=== PATIENT | male | born 1950 | race African-American/Black ===

== ENCOUNTER 2016-08-23 08:13 | Inpatient (IN) | payer MEDICARE, MEDICAID ==
[2016-08-23 09:19] LABS: ABG Draw Site Right Radial; ALLEN'S TEST PASS; BEb 1.7 (+/- 2)
[2016-08-23 09:22] LABS: AUTOMATED BASOPHIL 1.2 % (0-2); AUTOMATED EOSINOPHIL 4.9 % (0-5); AUTOMATED LYMPH 24.7 % (17-44); AUTOMATED NEUTROPHIL 54.2 % (45-76); MPV 9.8 fL (7.4-10.4)
[2016-08-23 09:34] LABS: BLOOD UREA NITROGEN 19 MG/DL (9-20); CALCIUM 9.6 MG/DL (8.4-10.2); CALCULATED OSMOLALITY 275 MOs/Kg (270-290); CHLORIDE 104 mEq/L (98-107); GLUCOSE 106 MG/DL (70-99); SODIUM LEVEL 142 mEq/L (137-146); TOTAL PROTEIN 8.6 G/DL (6.3-8.2)
--- NOTE | 2016-08-23 09:34 | DIRPT ---
CLINICAL DATA: Shortness of breath for about 2 weeks EXAM: CHEST 2 VIEW COMPARISON: 12/05/2015 FINDINGS: Cardiomegaly again noted. Status post median sternotomy. Single lead cardiac pacemaker is unchanged in position. Central mild vascular congestion and mild perihilar interstitial prominence right greater than left suspicious for asymmetric edema or less likely pneumonitis. Mild degenerative changes mid thoracic spine again noted. IMPRESSION: Cardiomegaly. Single lead cardiac pacemaker in place.Central mild vascular congestion and mild perihilar interstitial prominence right greater than left suspicious for asymmetric edema or less likely pneumonitis. Electronically Signed By: Ayad Tong M.D. On: 08/23/2016 09:31
[2016-08-23] MEDS ORDERED: METOPROLOL TARTRATE 25 MG TAB PO ONE (09:37)
[2016-08-23] MEDS ORDERED: Enoxaparin 1 mg per kg per dose SQ ONE (09:37)
[2016-08-23] MEDS ORDERED: ASPIRIN (CHEWABLE) 81 MG TAB PO ONE (09:37)
[2016-08-23 09:41] LABS: PARTIAL THROMB. TIME 28.2 SEC (22-35); PT-INR 1.1
[2016-08-23] MEDS: NITROGLYCERINE 2 % OINTMENT PACK TOP ONE ×2 (09:47→09:48)
[2016-08-23 09:52] LABS: LEUKOCYTES/URINE NEG (NEGATIVE); NITRITE/URINE NEG (NEGATIVE); RBC/URINE 0-2 (0-2); URINE OCCULT BLOOD 1+ (NEG/TRACE); WBC/URINE 0-2 (0-2)
--- NOTE | 2016-08-23 09:57 | EDPRACDOC ---
- History of Present Illness HPI: MD NOTE SEEN AND EXAMINED; HX OF CABG, ISCHEMIC CARDIOMYOPATHY, CHF, PAF/FLUTTER, AICD PRESENTS WITH DYSPNEA, ORTHOPNEA, AND CP. RECORDS FROM CARDS OBTAINED AND ON CHART. <Steve Ng - Last Filed: 08/23/16 10:24> - General Information Information Source: Patient Mode of Arrival: Car - History of Present Illness Onset: [employer] force [employer] HPI: C/o substernal chest pain starting last night with radiation into both arms and numbness in jaw, with productive cough and congestion and sob x 3 days. pt states he cannot lie flat for 3 days. CP is constant, pressure, worse with exertion. Denies fever, N/V/D, sore throat, changes in urine or BM. Med hx = ACS , prior CABG, CHF, HDL, HTN, DM, CKD< + fam hx for cardiac dz, paroxysmal Afib. Pt on plavix. pt states last stress test done in [place] last year some time and was ok. Chest Pain Location: Reports: Substernal Pain Radiation: Reports: Jaw, Arm (L), Arm (R) Symptoms Occur: Reports: Suddenly, At Rest, With light exertion Cardiac Risk Factors: Reports: Family History, Hyperlipidemia, Hypertension, Diabetes Cardiac History of: Reports: Cardiac Cath, Stress Test, CABG PE Risk Factors: Reports: None Medications within 24 Hours: Reports: Aspirin, Other (plavix) Pain Came On: Reports: Suddenly Pain Status: Present Now Pain Description: Reports: Pressure Pain Severity: Moderate Pain Worsens With: Reports: Exertion Associated Signs and Symptoms: Reports: SOB <Mendoza Wooten - Last Filed: 08/23/16 18:24> - General Information Stated Complaint: CHEST PAIN Time Seen by Provider: 08/23/16 08:55 Home Medications: Home Medications Clopidogrel Bisulfate [Plavix] 75 mg PO DAILY #30 tab 04/24/14 Nitroglycerin [Nitrostat] 0.4 mg SL [id number] PRN 08/22/14 Alprazolam [Xanax] 0.5 mg PO HS 03/31/15 Atorvastatin [Lipitor 20 mg Tablet] 20 mg PO DAILY 03/31/15 Docusate Sodium [Stool Softener] 100 mg PO DAILY 03/31/15 Multivitamin W/Iron, Minerals [Complete Senior] 1 each PO DAILY 03/31/15 Ranitidine [Zantac] 150 mg PO BID 03/31/15 Sertraline HCl [Zoloft] 25 mg PO DAILY 03/31/15 Tamsulosin HCl [Flomax] 0.4 mg PO DAILY 03/31/15 Carvedilol [Coreg] 3.125 mg PO BID #60 tablet 04/03/15 Lisinopril [Prinivil] 5 mg PO DAILY #30 tablet 04/03/15 Amiodarone [Cordarone, Pacerone] 100 mg PO HS 06/22/15 Oxycodone HCl [Oxycodone Immediate Release] 10 mg PO Q6H PRN 08/03/15 Torsemide [Demadex] 20 mg PO BID 08/03/15 Albuterol Sulfate [Proair Hfa] 2 puff INH Q4-6H PRN #1 inhaler 08/08/15 Apixaban [Eliquis] 5 mg PO BID 08/23/16 Ergocalciferol (Vitamin D2) [Vitamin D] 50,000 units PO WEEKLY 08/23/16 Febuxostat [Uloric] 40 mg PO DAILY 08/23/16 PEG-Electrolytes (Miralax) [Miralax] 17 gm PO DAILY PRN 08/23/16 Allergies/Adverse Reactions: Allergies Allergy/AdvReac Type Severity Reaction Status Date / Time shellfish derived Allergy Anaphylaxis Verified 08/23/16 12:43 * ED Past Medical History - History Reviewed Yes Nurses notes reviewed and agree except as marked - Patient Medical History Cardiac History: Reports: Coronary Artery Disease, Hypertension, Congestive Heart Failure, Heart Attack, Cardiac Catheterization, CABG (1999), Stress Test, Hypercholesterolemia, Internal Defibrillator, Pacemaker, Valvular Heart Disease (Echo 04/10: moderate mitral regurg. moderately elevated pulm artery pressure) Respiratory History: Reports: Asthma, COPD, Chronic Bronchitis, Pneumonia, Emphysema GI/ History: Reports: Renal Disease, Gastroesophageal Reflux, BPH Musculoskeletal History: Reports: Gout Psychological History: Denies: Depression, Substance Use Disorder Systemic History: Reports: Diabetes (diet controlled). Denies: Cancer Surgical History: Reports: CABG (1999), Cardiac Catheterization, Other ( PACEMAKER/aicd, CABG x3 stent placement, both feet.) - Family Medical History Reports: Hypertension (brother, father), Diabetes (father and mother), Cancer ( mother - ovarian), Cardiac Disorders (brother, father). Denies: Stroke - Social Medical History Smoking Status: Never smoker Social History: Denies: Substance Use Disorder <Mendoza Wooten - Last Filed: 08/23/16 18:24> EDM Review of Systems - Review of Systems ROS Negative Except as Marked: Yes All systems reviewed and were negative except as marked Nose: Congestion Respiratory: Shortness of Breath Cardiovascular: Chest Pain Endocrine: Diabetes <Mendoza Wooten - Last Filed: 08/23/16 18:24> - Physical Exam Last recorded Vital Signs: Last Vital Signs Temp 97.6 F 08/23/16 08:32 Pulse 69 08/23/16 09:49 Resp 18 08/23/16 09:49 BP 110/72 08/23/16 09:49 Pulse Ox 94 08/23/16 09:49 Oxygen Pulse Oxygen Saturation 94 O2 Device Nasal Cannula Oxygen Flow Rate 2 Fraction of Inspired Oxygen ( FIO2) <Steve Ng - Last Filed: 08/23/16 10:24> - Physical Exam Constitutional: No apparent distress, Alert Oriented to: Time, Person, Place Last recorded Vital Signs: Last Vital Signs Temp 97.6 F 08/23/16 08:32 Pulse 69 08/23/16 09:49 Resp 18 08/23/16 09:49 BP 110/72 08/23/16 09:49 Pulse Ox 94 08/23/16 09:49 Oxygen Pulse Oxygen Saturation 94 O2 Device Nasal Cannula Oxygen Flow Rate 2 Fraction of Inspired Oxygen ( FIO2) - HEENT Head: Normal Eye Exam: negative: Conjunctival Injection, Scleral Icterus Oropharynx: negative: Drooling TMJ: Normal Nose: Congestion Neck: Normal - Respiratory/Cardiovascular Respiratory: Normal - CTA Cardiovascular: Normal - GI Auscultation: Normal Palpation: Normal Tenderness: Non tender - Musculoskeletal Back: Normal Extremities: Normal - Integumentary Skin: Normal - Neurologic Mood Description: Normal Thought: Coherent Perception: Normal <Mendoza Wooten - Last Filed: 08/23/16 18:24> ED Chest Pain Exam - Respiratory/Cardiovascular Respiratory: Normal - CTA Cardiovascular/Chest: Normal Radial Pulse: Normal Pedal Pulse: Normal Edema: negative: 1+, 2+, 3+, 4+, 5, 6 Chest Palpation: Normal <Mendoza Wooten - Last Filed: 08/23/16 18:24> - Results 08/23/16 09:00 08/23/16 09:00 WBC 4.4 xk/uL (3.8-10.8) 08/23/16 09:00 RBC 5.11 xM/uL (4.70-6.10) 08/23/16 09:00 Hgb 13.7 g/dL (14.0-18.0) L 08/23/16 09:00 Hct 41.9 % (42-52) L 08/23/16 09:00 MCV 82 fL (80-94) 08/23/16 09:00 MCH 26.7 pg (27-32) L 08/23/16 09:00 MCHC 32.6 g/dl (33-36) L 08/23/16 09:00 RDW 17.2 % (11.5-14.5) H 08/23/16 09:00 Plt Count 211 xk/uL (130-400) 08/23/16 09:00 MPV 9.8 fL (7.4-10.4) 08/23/16 09:00 Neut % (Auto) 54.2 % (45-76) 08/23/16 09:00 Lymph % (Auto) 24.7 % (17-44) 08/23/16 09:00 [place] % (Auto) 15.0 % (3-10) H 08/23/16 09:00 Eos % (Auto) 4.9 % (0-5) 08/23/16 09:00 Baso % (Auto) 1.2 % (0-2) 08/23/16 09:00 Absolute Neuts (auto) 2.38 xk/uL (1.7-8.2) 08/23/16 09:00 Absolute Lymphs (auto) 1.06 xk/uL (0.65-4.75) 08/23/16 09:00 PT 11.8 SEC (9.2-11.2) H 08/23/16 09:00 INR 1.1 08/23/16 09:00 APTT 28.2 SEC (22-35) 08/23/16 09:00 Puncture Site Right radial 08/23/16 09:15 pH 7.440 pH UNITS (7.35-7.45) 08/23/16 09:15 pCO2 38.0 mmHg (35-45) 08/23/16 09:15 pO2 55.0 mmHg (80-100) L 08/23/16 09:15 HCO3 25.8 MMOL/L (22-26) 08/23/16 09:15 Total CO2 27.0 MMOL/L (23-27) 08/23/16 09:15 Base Excess 1.7 (+/- 2) 08/23/16 09:15 FiO2 % 21% 08/23/16 09:15 Specimen Drawn By Piksa 08/23/16 09:15 Sodium 142 mEq/L (137-146) 08/23/16 09:00 Potassium 3.8 mEq/L (3.5-5.1) 08/23/16 09:00 Chloride 104 mEq/L (98-107) 08/23/16 09:00 Carbon Dioxide 25 mMOL/L (22-33) 08/23/16 09:00 Anion Gap 17 mEq/L (8-16) H 08/23/16 09:00 BUN 19 MG/DL (9-20) 08/23/16 09:00 Creatinine 1.40 MG/DL (0.66-1.25) H 08/23/16 09:00 Estimated GFR (MDRD) > 60 mL/min (>=60) 08/23/16 09:00 Glucose 106 MG/DL (70-99) H 08/23/16 09:00 Calculated Osmolality 275 MOs/Kg (270-290) 08/23/16 09:00 Calcium 9.6 MG/DL (8.4-10.2) 08/23/16 09:00 Total Bilirubin 0.8 MG/DL (0.2-1.3) 08/23/16 09:00 AST 32 IU/L (17-59) 08/23/16 09:00 ALT 32 IU/L (21-72) 08/23/16 09:00 Alkaline Phosphatase 133 IU/L (50-160) 08/23/16 09:00 Troponin I 0.03 ng/mL (<.04) 08/23/16 09:00 Kun-Y-Mhltjcvfxag Pept 1760 pg/mL (0-900) H 08/23/16 09:00 Total Protein 8.6 G/DL (6.3-8.2) H 08/23/16 09:00 Albumin 4.3 G/DL (3.5-5.0) 08/23/16 09:00 Urine Color Pale yellow 08/23/16 09:30 Urine Clarity Clear 08/23/16 09:30 Urine pH 5.0 (5.0-8.0) 08/23/16 09:30 Ur Specific [place] 1.005 (1.003-1.035) 08/23/16 09:30 Urine Protein Neg (NEG/TRACE) 08/23/16 09:30 Urine Glucose (UA) Neg (NEGATIVE) 08/23/16 09:30 Urine Ketones Neg (NEGATIVE) 08/23/16 09:30 Urine Occult Blood 1+ (NEG/TRACE) H 08/23/16 09:30 Urine Nitrite Neg (NEGATIVE) 08/23/16 09:30 Urine Bilirubin Neg (NEGATIVE) 08/23/16 09:30 Urine Urobilinogen <2.0 MG/DL (0-1) 08/23/16 09:30 Ur Leukocyte Esterase Neg (NEGATIVE) 08/23/16 09:30 Urine RBC 0-2 (0-2) 08/23/16 09:30 Urine WBC 0-2 (0-2) 08/23/16 09:30 Urine Bacteria Few (NEG/FEW) 08/23/16 09:30 Urine Mucus Occ (NEG/OCC) 08/23/16 09:30 Lab Results 08/23/16 08/23/16 08/23/16 09:30 09:15 09:00 WBC RBC Hgb Hct MCV MCH MCHC RDW Plt Count MPV Neut % (Auto) Lymph % (Auto) [place] % (Auto) Eos % (Auto) Baso % (Auto) Absolute Neuts (auto) Absolute Lymphs (auto) PT INR APTT Puncture Site Right radial pH 7.440 pCO2 38.0 pO2 55.0 L HCO3 25.8 Total CO2 27.0 Base Excess 1.7 FiO2 % 21% Specimen Drawn By Piksa Sodium Potassium Chloride Carbon Dioxide Anion Gap BUN Creatinine Estimated GFR (MDRD) Glucose Calculated Osmolality Calcium Total Bilirubin AST ALT Alkaline Phosphatase Troponin I Xza-H-Xqumkoplnpi Pept Cancelled Total Protein Albumin Urine Color Pale yellow Urine Clarity Clear Urine pH 5.0 Ur Specific [place] 1.005 Urine Protein Neg Urine Glucose (UA) Neg Urine Ketones Neg Urine Occult Blood 1+ H Urine Nitrite Neg Urine Bilirubin Neg Urine Urobilinogen <2.0 Ur Leukocyte Esterase Neg Urine RBC 0-2 Urine WBC 0-2 Urine Bacteria Few Urine Mucus Occ 08/23/16 08/23/16 08/23/16 09:00 09:00 09:00 WBC 4.4 RBC 5.11 Hgb 13.7 L Hct 41.9 L MCV 82 MCH 26.7 L MCHC 32.6 L RDW 17.2 H Plt Count 211 MPV 9.8 Neut % (Auto) 54.2 Lymph % (Auto) 24.7 [place] % (Auto) 15.0 H Eos % (Auto) 4.9 Baso % (Auto) 1.2 Absolute Neuts (auto) 2.38 Absolute Lymphs (auto) 1.06 PT 11.8 H INR 1.1 APTT 28.2 Puncture Site pH pCO2 pO2 HCO3 Total CO2 Base Excess FiO2 % Specimen Drawn By Sodium 142 Potassium 3.8 Chloride 104 Carbon Dioxide 25 Anion Gap 17 H BUN 19 Creatinine 1.40 H Estimated GFR (MDRD) > 60 Glucose 106 H Calculated Osmolality 275 Calcium 9.6 Total Bilirubin 0.8 AST 32 ALT 32 Alkaline Phosphatase 133 Troponin I 0.03 Rvk-U-Gwmdwvzsfbz Pept 1760 H Total Protein 8.6 H Albumin 4.3 Urine Color Urine Clarity Urine pH Ur Specific [place] Urine Protein Urine Glucose (UA) Urine Ketones Urine Occult Blood Urine Nitrite Urine Bilirubin Urine Urobilinogen Ur Leukocyte Esterase Urine RBC Urine WBC Urine Bacteria Urine Mucus Laboratory Results - last 24 hr 08/23/16 08/23/16 08/23/16 09:00 09:00 09:00 WBC 4.4 RBC 5.11 Hgb 13.7 L Hct 41.9 L MCV 82 MCH 26.7 L MCHC 32.6 L RDW 17.2 H Plt Count 211 MPV 9.8 Neut % (Auto) 54.2 Lymph % (Auto) 24.7 [place] % (Auto) 15.0 H Eos % (Auto) 4.9 Baso % (Auto) 1.2 Absolute Neuts (auto) 2.38 Absolute Lymphs (auto) 1.06 PT 11.8 H INR 1.1 APTT 28.2 Puncture Site pH pCO2 pO2 HCO3 Total CO2 Base Excess FiO2 % Specimen Drawn By Sodium 142 Potassium 3.8 Chloride 104 Carbon Dioxide 25 Anion Gap 17 H BUN 19 Creatinine 1.40 H Estimated GFR (MDRD) > 60 Glucose 106 H Calculated Osmolality 275 Calcium 9.6 Total Bilirubin 0.8 AST 32 ALT 32 Alkaline Phosphatase 133 Troponin I 0.03 Alz-R-Cuzxutmsxph Pept 1760 H Total Protein 8.6 H Albumin 4.3 Urine Color Urine Clarity Urine pH Ur Specific [place] Urine Protein Urine Glucose (UA) Urine Ketones Urine Occult Blood Urine Nitrite Urine Bilirubin Urine Urobilinogen Ur Leukocyte Esterase Urine RBC Urine WBC Urine Bacteria Urine Mucus 08/23/16 08/23/16 08/23/16 09:00 09:15 09:30 WBC RBC Hgb Hct MCV MCH MCHC RDW Plt Count MPV Neut % (Auto) Lymph % (Auto) [place] % (Auto) Eos % (Auto) Baso % (Auto) Absolute Neuts (auto) Absolute Lymphs (auto) PT INR APTT Puncture Site Right radial pH 7.440 pCO2 38.0 pO2 55.0 L HCO3 25.8 Total CO2 27.0 Base Excess 1.7 FiO2 % 21% Specimen Drawn By Piksa Sodium Potassium Chloride Carbon Dioxide Anion Gap BUN Creatinine Estimated GFR (MDRD) Glucose Calculated Osmolality Calcium Total Bilirubin AST ALT Alkaline Phosphatase Troponin I Tqg-C-Vimsgslgwcl Pept Cancelled Total Protein Albumin Urine Color Pale yellow Urine Clarity Clear Urine pH 5.0 Ur Specific [place] 1.005 Urine Protein Neg Urine Glucose (UA) Neg Urine Ketones Neg Urine Occult Blood 1+ H Urine Nitrite Neg Urine Bilirubin Neg Urine Urobilinogen <2.0 Ur Leukocyte Esterase Neg Urine RBC 0-2 Urine WBC 0-2 Urine Bacteria Few Urine Mucus Occ Laboratory Results 08/23/16 09:00 08/23/16 09:00 <Steve Ng - Last Filed: 08/23/16 10:24> - Action ASA given in the ED: Yes - Results 08/23/16 09:00 08/23/16 09:00 WBC 4.4 xk/uL (3.8-10.8) 08/23/16 09:00 RBC 5.11 xM/uL (4.70-6.10) 08/23/16 09:00 Hgb 13.7 g/dL (14.0-18.0) L 08/23/16 09:00 Hct 41.9 % (42-52) L 08/23/16 09:00 MCV 82 fL (80-94) 08/23/16 09:00 MCH 26.7 pg (27-32) L 08/23/16 09:00 MCHC 32.6 g/dl (33-36) L 08/23/16 09:00 RDW 17.2 % (11.5-14.5) H 08/23/16 09:00 Plt Count 211 xk/uL (130-400) 08/23/16 09:00 MPV 9.8 fL (7.4-10.4) 08/23/16 09:00 Neut % (Auto) 54.2 % (45-76) 08/23/16 09:00 Lymph % (Auto) 24.7 % (17-44) 08/23/16 09:00 [place] % (Auto) 15.0 % (3-10) H 08/23/16 09:00 Eos % (Auto) 4.9 % (0-5) 08/23/16 09:00 Baso % (Auto) 1.2 % (0-2) 08/23/16 09:00 Absolute Neuts (auto) 2.38 xk/uL (1.7-8.2) 08/23/16 09:00 Absolute Lymphs (auto) 1.06 xk/uL (0.65-4.75) 08/23/16 09:00 PT 11.8 SEC (9.2-11.2) H 08/23/16 09:00 INR 1.1 08/23/16 09:00 APTT 28.2 SEC (22-35) 08/23/16 09:00 Puncture Site Right radial 08/23/16 09:15 pH 7.440 pH UNITS (7.35-7.45) 08/23/16 09:15 pCO2 38.0 mmHg (35-45) 08/23/16 09:15 pO2 55.0 mmHg (80-100) L 08/23/16 09:15 HCO3 25.8 MMOL/L (22-26) 08/23/16 09:15 Total CO2 27.0 MMOL/L (23-27) 08/23/16 09:15 Base Excess 1.7 (+/- 2) 08/23/16 09:15 FiO2 % 21% 08/23/16 09:15 Specimen Drawn By Piksa 08/23/16 09:15 Sodium 142 mEq/L (137-146) 08/23/16 09:00 Potassium 3.8 mEq/L (3.5-5.1) 08/23/16 09:00 Chloride 104 mEq/L (98-107) 08/23/16 09:00 Carbon Dioxide 25 mMOL/L (22-33) 08/23/16 09:00 Anion Gap 17 mEq/L (8-16) H 08/23/16 09:00 BUN 19 MG/DL (9-20) 08/23/16 09:00 Creatinine 1.40 MG/DL (0.66-1.25) H 08/23/16 09:00 Estimated GFR (MDRD) > 60 mL/min (>=60) 08/23/16 09:00 Glucose 106 MG/DL (70-99) H 08/23/16 09:00 Calculated Osmolality 275 MOs/Kg (270-290) 08/23/16 09:00 Calcium 9.6 MG/DL (8.4-10.2) 08/23/16 09:00 Total Bilirubin 0.8 MG/DL (0.2-1.3) 08/23/16 09:00 AST 32 IU/L (17-59) 08/23/16 09:00 ALT 32 IU/L (21-72) 08/23/16 09:00 Alkaline Phosphatase 133 IU/L (50-160) 08/23/16 09:00 Troponin I 0.03 ng/mL (<.04) 08/23/16 09:00 Rqf-O-Gsmyrzwvguf Pept 1760 pg/mL (0-900) H 08/23/16 09:00 Total Protein 8.6 G/DL (6.3-8.2) H 08/23/16 09:00 Albumin 4.3 G/DL (3.5-5.0) 08/23/16 09:00 Urine Color Pale yellow 08/23/16 09:30 Urine Clarity Clear 08/23/16 09:30 Urine pH 5.0 (5.0-8.0) 08/23/16 09:30 Ur Specific [place] 1.005 (1.003-1.035) 08/23/16 09:30 Urine Protein Neg (NEG/TRACE) 08/23/16 09:30 Urine Glucose (UA) Neg (NEGATIVE) 08/23/16 09:30 Urine Ketones Neg (NEGATIVE) 08/23/16 09:30 Urine Occult Blood 1+ (NEG/TRACE) H 08/23/16 09:30 Urine Nitrite Neg (NEGATIVE) 08/23/16 09:30 Urine Bilirubin Neg (NEGATIVE) 08/23/16 09:30 Urine Urobilinogen <2.0 MG/DL (0-1) 08/23/16 09:30 Ur Leukocyte Esterase Neg (NEGATIVE) 08/23/16 09:30 Urine RBC 0-2 (0-2) 08/23/16 09:30 Urine WBC 0-2 (0-2) 08/23/16 09:30 Urine Bacteria Few (NEG/FEW) 08/23/16 09:30 Urine Mucus Occ (NEG/OCC) 08/23/16 09:30 Lab Results 08/23/16 08/23/16 08/23/16 09:30 09:15 09:00 WBC RBC Hgb Hct MCV MCH MCHC RDW Plt Count MPV Neut % (Auto) Lymph % (Auto) [place] % (Auto) Eos % (Auto) Baso % (Auto) Absolute Neuts (auto) Absolute Lymphs (auto) PT INR APTT Puncture Site Right radial pH 7.440 pCO2 38.0 pO2 55.0 L HCO3 25.8 Total CO2 27.0 Base Excess 1.7 FiO2 % 21% Specimen Drawn By Piksa Sodium Potassium Chloride Carbon Dioxide Anion Gap BUN Creatinine Estimated GFR (MDRD) Glucose Calculated Osmolality Calcium Total Bilirubin AST ALT Alkaline Phosphatase Troponin I Zyn-B-Izmdwraaicq Pept Cancelled Total Protein Albumin Urine Color Pale yellow Urine Clarity Clear Urine pH 5.0 Ur Specific [place] 1.005 Urine Protein Neg Urine Glucose (UA) Neg Urine Ketones Neg Urine Occult Blood 1+ H Urine Nitrite Neg Urine Bilirubin Neg Urine Urobilinogen <2.0 Ur Leukocyte Esterase Neg Urine RBC 0-2 Urine WBC 0-2 Urine Bacteria Few Urine Mucus Occ 08/23/16 08/23/16 08/23/16 09:00 09:00 09:00 WBC 4.4 RBC 5.11 Hgb 13.7 L Hct 41.9 L MCV 82 MCH 26.7 L MCHC 32.6 L RDW 17.2 H Plt Count 211 MPV 9.8 Neut % (Auto) 54.2 Lymph % (Auto) 24.7 [place] % (Auto) 15.0 H Eos % (Auto) 4.9 Baso % (Auto) 1.2 Absolute Neuts (auto) 2.38 Absolute Lymphs (auto) 1.06 PT 11.8 H INR 1.1 APTT 28.2 Puncture Site pH pCO2 pO2 HCO3 Total CO2 Base Excess FiO2 % Specimen Drawn By Sodium 142 Potassium 3.8 Chloride 104 Carbon Dioxide 25 Anion Gap 17 H BUN 19 Creatinine 1.40 H Estimated GFR (MDRD) > 60 Glucose 106 H Calculated Osmolality 275 Calcium 9.6 Total Bilirubin 0.8 AST 32 ALT 32 Alkaline Phosphatase 133 Troponin I 0.03 Ykq-V-Rjeexgtqwbs Pept 1760 H Total Protein 8.6 H Albumin 4.3 Urine Color Urine Clarity Urine pH Ur Specific [place] Urine Protein Urine Glucose (UA) Urine Ketones Urine Occult Blood Urine Nitrite Urine Bilirubin Urine Urobilinogen Ur Leukocyte Esterase Urine RBC Urine WBC Urine Bacteria Urine Mucus Laboratory Results - last 24 hr 08/23/16 08/23/16 08/23/16 09:00 09:00 09:00 WBC 4.4 RBC 5.11 Hgb 13.7 L Hct 41.9 L MCV 82 MCH 26.7 L MCHC 32.6 L RDW 17.2 H Plt Count 211 MPV 9.8 Neut % (Auto) 54.2 Lymph % (Auto) 24.7 [place] % (Auto) 15.0 H Eos % (Auto) 4.9 Baso % (Auto) 1.2 Absolute Neuts (auto) 2.38 Absolute Lymphs (auto) 1.06 PT 11.8 H INR 1.1 APTT 28.2 Puncture Site pH pCO2 pO2 HCO3 Total CO2 Base Excess FiO2 % Specimen Drawn By Sodium 142 Potassium 3.8 Chloride 104 Carbon Dioxide 25 Anion Gap 17 H BUN 19 Creatinine 1.40 H Estimated GFR (MDRD) > 60 Glucose 106 H Calculated Osmolality 275 Calcium 9.6 Total Bilirubin 0.8 AST 32 ALT 32 Alkaline Phosphatase 133 Troponin I 0.03 Vfu-E-Hpduiaexarr Pept 1760 H Total Protein 8.6 H Albumin 4.3 Urine Color Urine Clarity Urine pH Ur Specific [place] Urine Protein Urine Glucose (UA) Urine Ketones Urine Occult Blood Urine Nitrite Urine Bilirubin Urine Urobilinogen Ur Leukocyte Esterase Urine RBC Urine WBC Urine Bacteria Urine Mucus 08/23/16 08/23/16 08/23/16 09:00 09:15 09:30 WBC RBC Hgb Hct MCV MCH MCHC RDW Plt Count MPV Neut % (Auto) Lymph % (Auto) [place] % (Auto) Eos % (Auto) Baso % (Auto) Absolute Neuts (auto) Absolute Lymphs (auto) PT INR APTT Puncture Site Right radial pH 7.440 pCO2 38.0 pO2 55.0 L HCO3 25.8 Total CO2 27.0 Base Excess 1.7 FiO2 % 21% Specimen Drawn By Piksa Sodium Potassium Chloride Carbon Dioxide Anion Gap BUN Creatinine Estimated GFR (MDRD) Glucose Calculated Osmolality Calcium Total Bilirubin AST ALT Alkaline Phosphatase Troponin I Zse-M-Hjebbkvghtf Pept Cancelled Total Protein Albumin Urine Color Pale yellow Urine Clarity Clear Urine pH 5.0 Ur Specific [place] 1.005 Urine Protein Neg Urine Glucose (UA) Neg Urine Ketones Neg Urine Occult Blood 1+ H Urine Nitrite Neg Urine Bilirubin Neg Urine Urobilinogen <2.0 Ur Leukocyte Esterase Neg Urine RBC 0-2 Urine WBC 0-2 Urine Bacteria Few Urine Mucus Occ Laboratory Results 08/23/16 09:00 08/23/16 09:00 - EKG EKG #1 EKG Time: 08:27 -: Yes EKG interpreted by me Rate: bpm: 82 Rhythm: PVCs, Other (sinus rhythm) Block: 1, LBBB Comparison: 12/05/15 (no PVC's) <Mendoza Wooten - Last Filed: 08/23/16 18:24> <Steve Ng - Last Filed: 08/23/16 10:24> - Departure Disposition: Admit IP To This Hospital Decision to Admit Time: 10:13 (Dr Gruber) Decision to admit date: 08/23/16 Decision to admit: from ED <Mendoza Wooten - Last Filed: 08/23/16 18:24> - Departure Condition: Stable Final Diagnosis: Paroxysmal a-fib, History of ischemic cardiomyopathy Chest pain Qualifiers: Chest pain type: unspecified Qualified Code(s): R07.9 - Chest pain, unspecified Congestive cardiac failure Qualifiers: Congestive heart failure type: unspecified congestive heart failure type Congestive heart failure chronicity: unspecified congestive heart failure chronicity Qualified Code(s): I50.9 - Heart failure, unspecified
[2016-08-23] MEDS ORDERED: ENOXAPARIN 100 MG PFS SQ ONE (10:00)
[2016-08-23] MEDS ORDERED: ACETAMINOPHEN 325 MG/TAB TABLET PO ONE (10:13)
[2016-08-23] MEDS ORDERED: DEXTROSE 25 GM/50 ML PFS IV PRN (10:53)
[2016-08-23] MEDS ORDERED: GLUCOSE (ORAL GEL) 15 GM TUBE PO PRN (10:53)
[2016-08-23] MEDS ORDERED: GLUCAGON 1 MG VIAL SQ PRN (10:53)
[2016-08-23] MEDS ORDERED: ALBUTEROL 0.083% 3 ML NEB NEB PRN (10:53)
[2016-08-23] MEDS ORDERED: PEG-ELECTROLYTE 17 GM PACK PO PRN (11:07)
--- NOTE | 2016-08-23 11:13 | HISTPHYS ---
- Chief Complaint sob, cough, pnd - History of Present Illness Sandy thurston presented emergency room early on today for evaluation of few days history of progressive worsening difficulties breathing cough and phlegm production. She stays about a week ago he has developed chest congestion with cough productive of small amount of foamy whitish sputum. He has subsequent developed chest tightness wheezes and cough productive thick yellowish greenish phlegm. His dyspnea has worsened. He has also noticed worsening swelling of both legs and weight gain of about 6 lb. Patient reports recent PND and orthopnea and had to sleep in recliner over the past couple nights. He denies any recent discharges from the defibrillator. Given persistence of his symptoms and worsening difficulties breathing patient decided to be evaluated emergency room. Upon arrival in ED he was found to be in the moderate respiratory distress hypoxic tachypneic and tachycardic. His initial PaO2 was 55. Initial chest x-ray showed cardiomegaly, pulmonary vascular congestion and a right-sided perihilar prominence. Medical consultation was phoned in for inpatient treatment. - Medical History Cardiac History: Reports: Coronary Artery Disease, Hypertension, Congestive Heart Failure, Heart Attack, Cardiac Catheterization, CABG (1999), Stress Test, Hypercholesterolemia, Internal Defibrillator, Pacemaker, Valvular Heart Disease (Echo 04/10: moderate mitral regurg. moderately elevated pulm artery pressure) Respiratory History: Reports: Asthma, COPD, Chronic Bronchitis, Pneumonia, Emphysema GI/ History: Reports: Renal Disease, Gastroesophageal Reflux, BPH Musculoskeletal History: Reports: Gout Systemic History: Reports: Diabetes (diet controlled). Denies: Cancer Neurological History: Reports: No Significant History Psychological History: Reports: Anxiety. Denies: Depression, Substance Use Disorder - Surgical History Reports: CABG (1999), Cardiac Catheterization, Other (PACEMAKER/aicd, CABG x3 stent placement, both feet.) - Medictions/Allergies Allergies shellfish derived Allergy (Verified 08/23/16 08:35) Anaphylaxis* Current Medication List: Reviewed Home Medications Clopidogrel Bisulfate [Plavix] 75 mg PO DAILY #30 tab 04/24/14 Nitroglycerin [Nitrostat] 0.4 mg SL Q5MX3 PRN 08/22/14 Alprazolam [Xanax] 0.5 mg PO HS 03/31/15 Atorvastatin [Lipitor 20 mg Tablet] 20 mg PO DAILY 03/31/15 Docusate Sodium [Stool Softener] 100 mg PO DAILY 03/31/15 Multivitamin W/Iron, Minerals [Complete Senior] 1 each PO DAILY 03/31/15 Ranitidine [Zantac] 150 mg PO BID 03/31/15 Sertraline HCl [Zoloft] 25 mg PO DAILY 03/31/15 Tamsulosin HCl [Flomax] 0.4 mg PO DAILY 03/31/15 Carvedilol [Coreg] 3.125 mg PO BID #60 tablet 04/03/15 Lisinopril [Prinivil] 5 mg PO DAILY #30 tablet 04/03/15 Amiodarone [Cordarone, Pacerone] 100 mg PO HS 06/22/15 Oxycodone HCl [Oxycodone Immediate Release] 10 mg PO Q6H PRN 08/03/15 Torsemide [Demadex] 20 mg PO BID 08/03/15 Albuterol Sulfate [Proair Hfa] 2 puff INH Q4-6H PRN #1 inhaler 08/08/15 Apixaban [Eliquis] 5 mg PO DAILY 08/23/16 Ergocalciferol (Vitamin D2) [Vitamin D] 50,000 units PO WEEKLY 08/23/16 Febuxostat [Uloric] 40 mg PO DAILY 08/23/16 PEG-Electrolytes (Miralax) [Miralax] 17 gm PO DAILY PRN 08/23/16 - Family History Reports: Hypertension (brother, father), Diabetes (father and mother), Cancer ( mother - ovarian), Cardiac Disorders (brother, father). Denies: Stroke - Social History Travel Outside of [place] in the Last 3 Months?: No Lives: Alone Smoking Status: Never smoker Social History: Denies: Substance Use Disorder - Review of Systems Constitutional: Chills, Fever, Diaphoresis, Fatigue, Loss of Appetite, Weakness , Weight gain Eyes: No Symptoms Reported Ears: No Symptoms Reported Nose: No Symptoms Reported Mouth: No Symptoms Reported Throat/Neck: No Symptoms Reported Respiratory: Cough, Shortness of Breath, Wheezing, Sputum, Pleurisy, Dyspnea Cardiovascular: No Symptoms Reported, Orthopnea, Palpitations, PND Gastrointestinal: Nausea, Constipation, Heartburn Genitourinary: Nocturia Neurological: Headache, Numbness, Weakness Musculoskeletal:: Arthritis Integumentary: No Symptoms Reported Allergic/Immunologic: No Symptoms Reported Hematologic: No Symptoms Reported Endocrine: No Symptoms Reported Psychiatric: Anxiety - Physical Exam Vital Signs: Initial Vitals Temperature 97.6 F 08/23/16 08:32 Pulse Rate 79 08/23/16 08:32 Respiratory Rate 18 08/23/16 08:32 Blood Pressure 117/74 08/23/16 08:32 Pulse Oxygen Saturation 92 08/23/16 08:32 Constitutional: Alert, Distress, Restless Oriented to: Time, Person, Place - HEENT Head: Normal Eye: Normal Oropharynx: Normal TMJ: Normal Nose: No Symptoms Reported Respiratory: Accessory Muscle Use, Diminished, Rales, Rhonchi, Tachypnea, Wheezes Cardiovascular: Normal, Systolic murmur - GI Auscultation: Normal Palpation: Normal Tenderness: Non tender Rectal Exam: Deferred - Exam Deferred: Yes - Musculoskeletal Back: Normal Extremities: Edema Spine: limited range of motion - Integumentary Skin: Normal, Warm, Dry Lymphatics: Normal - Neurologic Memory Impaired: Normal Motor Function: Abnormal Cranial Nerve: Normal Cerebellar: Ataxia Mood Description: Normal, Anxious Thought: Coherent Perception: Normal - Focused CV Perfusion Exam Vital Signs: Last Vital Signs Temp 97.6 F 08/23/16 08:32 Pulse 58 L 08/23/16 10:59 Resp 20 08/23/16 10:59 BP 99/68 08/23/16 10:59 Pulse Ox 94 08/23/16 10:59 - Diagnostic Findings Allergies shellfish derived Allergy (Verified 08/23/16 08:35) Anaphylaxis* Initial Vitals Temperature 97.6 F 08/23/16 08:32 Pulse Rate 79 08/23/16 08:32 Respiratory Rate 18 08/23/16 08:32 Blood Pressure 117/74 08/23/16 08:32 Pulse Oxygen Saturation 92 08/23/16 08:32 08/23/16 09:00 08/23/16 09:00 Abnormal Lab Results 08/23/16 08/23/16 08/23/16 09:00 09:00 09:00 Hgb 13.7 L Hct 41.9 L MCH 26.7 L MCHC 32.6 L RDW 17.2 H [place] % (Auto) 15.0 H PT 11.8 H pO2 Anion Gap 17 H Creatinine 1.40 H Glucose 106 H Iun-B-Iqvpijqydms Pept 1760 H Total Protein 8.6 H Urine Occult Blood 08/23/16 08/23/16 09:15 09:30 Hgb Hct MCH MCHC RDW [place] % (Auto) PT pO2 55.0 L Anion Gap Creatinine Glucose Veu-K-Ivwsmphlsgv Pept Total Protein Urine Occult Blood 1+ H Last Vital Signs Temp 97.6 F 08/23/16 08:32 Pulse 58 L 08/23/16 10:59 Resp 20 08/23/16 10:59 BP 99/68 08/23/16 10:59 Pulse Ox 94 08/23/16 10:59 Patient Name: FAMILIA BARRERA LOC: ED : 1950 AGE: 65 Order Date:08/23/16 Date of Service: Report # [id number] Ord Physician: Mendoza Wooten Exam # [id number] Emergency Physician: Deevn Ng MD Exam(s): [id number] RAD/DG CHEST 2V CLINICAL DATA: Shortness of breath for about 2 weeks EXAM: CHEST 2 VIEW COMPARISON: 12/05/2015 FINDINGS: Cardiomegaly again noted. Status post median sternotomy. Single lead cardiac pacemaker is unchanged in position. Central mild vascular congestion and mild perihilar interstitial prominence right greater than left suspicious for asymmetric edema or less likely pneumonitis. Mild degenerative changes mid thoracic spine again noted. IMPRESSION: Cardiomegaly. Single lead cardiac pacemaker in place.Central mild vascular congestion and mild perihilar interstitial prominence right greater than left suspicious for asymmetric edema or less likely pneumonitis. Electronically Signed By: Ayad Tong M.D. On: 08/23/2016 09:31 Electronically Signed By: Ayad Tong MD Electronically Signed Date/Time: [id number] Dictate Date/Time: 08/23/16 0929 Technologist: Milana Goff Transcribed - Assessment (1) Acute respiratory failure with hypoxia J96.01 - ACUTE RESPIRATORY FAILURE WITH HYPOXIA Acute Present on Admission: Yes Patient will be admitted to step-down unit, supplemental O2 we provided will keep his sats greater 90%. Monitor pulmonary status PA and lateral chest x-ray and ABG will be obtained the morning.. (2) Heart failure, systolic, with acute decompensation I50.23 - ACUTE ON CHRONIC SYSTOLIC (CONGESTIVE) HEART FAILURE Acute Present on Admission: Yes Monitor weight and fluid balance. Continue salt restriction continue IV diuretic. Consult Cardiology. (3) Bacterial pneumonia J15.9 - UNSPECIFIED BACTERIAL PNEUMONIA Acute Present on Admission: Yes Patient will receive IV antibiotics in the form of Rocephin and Zithromax. Continue aggressive pulmonary toilet (4) Paroxysmal a-fib I48.0 - PAROXYSMAL ATRIAL FIBRILLATION Chronic Present on Admission: Yes Continue amiodarone. Keep K more than 4 magnesium more than 2.. Anticoagulated. (5) CAD (coronary artery disease), [place] coronary artery I25.10 - ATHSCL HEART DISEASE OF [place] CORONARY ARTERY W/O ANG PCTRS Chronic Qualifiers: [place] vs. transplanted heart: [place] heart Associated angina: with stable angina Qualified Code(s): I25.119 - Atherosclerotic heart disease of [place] coronary artery with unspecified angina pectoris Continue medical therapy 3 sets of cardiac enzymes will be obtained. Again consult Cardiology. (6) Dyslipidemia E78.5 - HYPERLIPIDEMIA, UNSPECIFIED Chronic Present on Admission: Yes Continue Lipitor (7) Essential hypertension I10 - ESSENTIAL (PRIMARY) HYPERTENSION Chronic Present on Admission: Yes BP on lower side, hold meds for SBP less than 110 (8) Anemia D64.9 - ANEMIA, UNSPECIFIED Acute Qualifiers: Anemia type: unspecified type Iron deficiency anemia type: I Vitamin B12 deficiency anemia type: V Folate deficiency anemia type: F Bone marrow failure anemia type: B Hemolytic anemia type: H Other causes of anemia: O Qualified Code(s): D64.9 - Anemia, unspecified Monitor counts transfuse as needed and indicated (9) CKD (chronic kidney disease) stage 3, GFR 30-59 ml/min N18.3 - CHRONIC KIDNEY DISEASE, STAGE 3 (MODERATE) Chronic Present on Admission: Yes Monitor renal function maintain hydration avoid any nephrotoxins. Case Care Discussed with: Patient, Consultants, Nursing Staff, Recovery Manager Total Time: 65 min . Code: 291
--- NOTE | 2016-08-23 11:52 | PCM.CARDCO ---
Consultation Date: 08/23/16 Requesting Physician: Carloz Felix Fish Housekeeper: Jim Shaffer Consult Reason: CHF - History of Present Illness Patient is a 65 years old gentleman with quite complex past medical history. That include ischemic cardiomyopathy with severely diminished left ventricle ejection fraction. He also have single-chamber ICD. History of diabetes hypertension congestive heart failure. He presented to the hospital with chief complaint of shortness of breath for period of about 2 and half days. On top of that she complains of having some chest pain pain is located in the middle of his chest is worse by pressing chest wall. It is worse with twisting and moving worse with coughing. He was not able to sleep within last couple days. He did notice any swelling of lower extremities. He took his medications the way he should. No syncope no dizziness no discharges from his the the fibrillator. Chief Complaint: sob, cough, pnd - Past Medical and Surgical History Cardiac History: Reports: Coronary Artery Disease, Hypertension, Congestive Heart Failure, Heart Attack, Cardiac Catheterization, CABG (1999), Stress Test, Hypercholesterolemia, Internal Defibrillator, Pacemaker, Valvular Heart Disease (Echo 04/10: moderate mitral regurg. moderately elevated pulm artery pressure) Respiratory History: Reports: Asthma, COPD, Chronic Bronchitis, Pneumonia, Emphysema GI/ History: Reports: Renal Disease, Gastroesophageal Reflux, BPH Systemic History: Reports: Diabetes (diet controlled). Denies: Cancer Musculoskeletal History: Reports: Gout Psychological History: Denies: Depression, Substance Use Disorder Past Surgical History: Reports: CABG (1999), Cardiac Catheterization, Other ( PACEMAKER/aicd, CABG x3 stent placement, both feet.) Allergies shellfish derived Allergy (Verified 08/23/16 08:35) Anaphylaxis* Home Medications Clopidogrel Bisulfate [Plavix] 75 mg PO DAILY #30 tab 04/24/14 Nitroglycerin [Nitrostat] 0.4 mg SL Q5MX3 PRN 08/22/14 Alprazolam [Xanax] 0.5 mg PO HS 03/31/15 Atorvastatin [Lipitor 20 mg Tablet] 20 mg PO DAILY 03/31/15 Docusate Sodium [Stool Softener] 100 mg PO DAILY 03/31/15 Multivitamin W/Iron, Minerals [Complete Senior] 1 each PO DAILY 03/31/15 Ranitidine [Zantac] 150 mg PO BID 09/04/15 Sertraline HCl [Zoloft] 25 mg PO DAILY 03/31/15 Tamsulosin HCl [Flomax] 0.4 mg PO DAILY 03/31/15 Carvedilol [Coreg] 3.125 mg PO BID #60 tablet 04/03/15 Lisinopril [Prinivil] 5 mg PO DAILY #30 tablet 04/03/15 Amiodarone [Cordarone, Pacerone] 100 mg PO HS 06/22/15 Oxycodone HCl [Oxycodone Immediate Release] 10 mg PO Q6H PRN 08/03/15 Torsemide [Demadex] 20 mg PO BID 08/03/15 Albuterol Sulfate [Proair Hfa] 2 puff INH Q4-6H PRN #1 inhaler 08/08/15 Apixaban [Eliquis] 5 mg PO DAILY 08/23/16 Ergocalciferol (Vitamin D2) [Vitamin D] 50,000 units PO WEEKLY 08/23/16 Febuxostat [Uloric] 40 mg PO DAILY 08/23/16 PEG-Electrolytes (Miralax) [Miralax] 17 gm PO DAILY PRN 08/23/16 - Social History Travel Outside of [place] in the Last 3 Months?: No Smoking Status: Never smoker Social History: Denies: Substance Use Disorder - Family History Reports: Hypertension (brother, father), Diabetes (father and mother), Cancer ( mother - ovarian), Cardiac Disorders (brother, father). Denies: Stroke - Physical Exam Constitutional: No apparent distress, Alert Oriented to: Time, Person, Place Exam: Last Vital Signs Temp 97.6 F 08/23/16 08:32 Pulse 58 L 08/23/16 10:59 Resp 20 08/23/16 10:59 BP 99/68 08/23/16 10:59 Pulse Ox 94 08/23/16 10:59 Intake & Output 08/22/16 08/23/16 08/23/16 23:59 07:59 15:59 Patient's weight 102.058 kg - HEENT Head: Normal Eye: negative: Conjunctival Injection, Scleral Icterus Oropharynx: negative: Drooling TMJ: Normal Nose: Congestion - Respiratory/Cardiovascular Respiratory: Normal - CTA - GI Auscultation: Normal Palpation: Normal Tenderness: Non tender - Musculoskeletal Back: Normal Extremities: Normal - Integumentary Skin: Normal - Neurologic Mood Description: Normal Thought: Coherent Perception: Normal - Other Exam Other Exam Findings: General Appearance: Well developed. Well nourished. In no acute distress. Lungs: Chest was not overinflated. Clear to auscultation, poor air entry. Cardiovascular: Jugular Venous Distention: JVD difficult to assess short and fat neck.. Heart Rate And Rhythm: , somewhat irregular, There is systolic holosystolic murmur grade 3/6 best heard left border sternum. Heart Sounds: Normal. Murmurs: Murmur described above. Carotid Arteries: Carotid pulses were normal. No bruit in the carotid artery. Edema: Not present. Lower extremities pulses normal (including femoral popliteal and dorsalis pedis) . Musculoskeletal System: General/bilateral: No cyanosis of the fingers. Neurological: Oriented to time, place, and person. Nails: No clubbing of the fingernails. - Lab Results Laboratory Tests 08/23/16 08/23/16 08/23/16 09:00 09:00 09:00 WBC 4.4 RBC 5.11 Hgb 13.7 L Hct 41.9 L MCV 82 MCH 26.7 L MCHC 32.6 L RDW 17.2 H Plt Count 211 MPV 9.8 Neut % (Auto) 54.2 Lymph % (Auto) 24.7 [place] % (Auto) 15.0 H Eos % (Auto) 4.9 Baso % (Auto) 1.2 Absolute Neuts (auto) 2.38 Absolute Lymphs (auto) 1.06 PT 11.8 H INR 1.1 APTT 28.2 Puncture Site pH pCO2 pO2 HCO3 Total CO2 Base Excess FiO2 % Specimen Drawn By Sodium 142 Potassium 3.8 Chloride 104 Carbon Dioxide 25 Anion Gap 17 H BUN 19 Creatinine 1.40 H Estimated GFR (MDRD) > 60 Glucose 106 H Calculated Osmolality 275 Calcium 9.6 Total Bilirubin 0.8 AST 32 ALT 32 Alkaline Phosphatase 133 Troponin I 0.03 Qgm-E-Rvlnmddihjg Pept 1760 H Total Protein 8.6 H Albumin 4.3 Urine Color Urine Clarity Urine pH Ur Specific [place] Urine Protein Urine Glucose (UA) Urine Ketones Urine Occult Blood Urine Nitrite Urine Bilirubin Urine Urobilinogen Ur Leukocyte Esterase Urine RBC Urine WBC Urine Bacteria Urine Mucus 08/23/16 08/23/16 08/23/16 09:00 09:15 09:30 WBC RBC Hgb Hct MCV MCH MCHC RDW Plt Count MPV Neut % (Auto) Lymph % (Auto) [place] % (Auto) Eos % (Auto) Baso % (Auto) Absolute Neuts (auto) Absolute Lymphs (auto) PT INR APTT Puncture Site Right radial pH 7.440 pCO2 38.0 pO2 55.0 L HCO3 25.8 Total CO2 27.0 Base Excess 1.7 FiO2 % 21% Specimen Drawn By [place] Sodium Potassium Chloride Carbon Dioxide Anion Gap BUN Creatinine Estimated GFR (MDRD) Glucose Calculated Osmolality Calcium Total Bilirubin AST ALT Alkaline Phosphatase Troponin I Sjk-S-Axjihksaijl Pept Cancelled Total Protein Albumin Urine Color Pale yellow Urine Clarity Clear Urine pH 5.0 Ur Specific [place] 1.005 Urine Protein Neg Urine Glucose (UA) Neg Urine Ketones Neg Urine Occult Blood 1+ H Urine Nitrite Neg Urine Bilirubin Neg Urine Urobilinogen <2.0 Ur Leukocyte Esterase Neg Urine RBC 0-2 Urine WBC 0-2 Urine Bacteria Few Urine Mucus Occ - Diagnostic Findings Electrocardiogram is missing from the chart. I will ask that repeated. - Assessment/Plan (1) Chest pain R07.9 - CHEST PAIN, UNSPECIFIED Acute Present on Admission: Yes unspecified I R07.9 - Chest pain, unspecified Comment: Somewhat atypical continues for period of almost 2 days. Obviously will collect his cardiac enzymes as well as troponins. Will add aspirin, will not put him on Lovenox no heparin secondary to the fact that he is on Eliquis. (2) History of ischemic cardiomyopathy Z86.79 - PERSONAL HISTORY OF OTHER DISEASES OF THE CIRCULATORY SYSTEM Acute Comment: Will repeat echocardiogram to recheck his left ventricle ejection fraction. (3) Paroxysmal a-fib I48.0 - PAROXYSMAL ATRIAL FIBRILLATION Acute Comment: Electrocardiogram is missing from the chart will repeat this. Will maintain him on anticoagulation since his Avtar score is high enough to justify anticoagulation. We were able to fine electrocardiogram electrocardiogram showed normal sinus rhythm first-degree AV block intraventricular conduction delay left bundle branch block type. Some PVCs were present. (4) Heart failure, systolic, with acute decompensation I50.23 - ACUTE ON CHRONIC SYSTOLIC (CONGESTIVE) HEART FAILURE Acute Comment: Appears to be mildly decompensated. He is already on beta-elena as well as ERICA-inhibitor. Will continue. Will watch his blood pressure very carefully. Will Plan: Gentleman with advanced cardiomyopathy severely diminished left ventricle ejection fraction came to hospital with shortness of breath for. Of last couple days plus somewhat atypical chest pain. Will try to maximize his medications for congestive heart failure. Echocardiogram will be done. Cardiac enzymes will be obtained. Future recommendation will be made based on his hospital course.
[2016-08-23] MEDS ORDERED: FUROSEMIDE 40 MG/4 ML VIAL IV ONE (12:00)
[2016-08-23 12:48] LABS: hTSH 1.51 uIU/mL (0.5-4.67)
[2016-08-23] MEDS: CEFTRIAXONE 1 GM in D5W 100 ML IV SCH (13:15)
[2016-08-23] MEDS: NS 1,000 ML IV SCH (13:15)
[2016-08-23] MEDS: VITS,MINERALS,IRON TAB PO SCH (13:16)
[2016-08-23] MEDS: OXYCODONE HCL 5 MG TABLET PO PRN ×2 (13:18→21:34)
[2016-08-23] MEDS ORDERED: Vaccine Screening Complete SCH (14:00)
[2016-08-23] MEDS: Albuterol/Ipratropium Neb 3 ML NEB NEB SCH ×2 (14:05→19:35)
[2016-08-23] MEDS: REGULAR INSULIN 100 UNITS/ML - 3 ML VIAL SQ SCH ×3 (14:20→23:40)
[2016-08-23] MEDS: AZITHROMYCIN 500 MG in D5W 250 ML IV SCH (14:42)
[2016-08-23] MEDS: Furosemide 100 MG/10 ML VIAL IV SCH ×2 (15:20→21:28)
[2016-08-23] MEDS: MORPHINE 2 MG/ML INJECTION IV PRN ×2 (18:32→23:25)
[2016-08-23] MEDS: CARVEDILOL 3.125 MG TAB PO SCH (21:26)
[2016-08-23] MEDS: ALPRAZOLAM 0.5 MG TAB PO SCH (21:26)
[2016-08-23] MEDS: APIXABAN 5 MG TABLET PO SCH (21:26)
[2016-08-23] MEDS: AMIODARONE 200 MG TAB PO SCH (21:27)
[2016-08-23] MEDS: RANITIDINE 150 MG TAB PO SCH (21:27)
[2016-08-24] MEDS: Albuterol/Ipratropium Neb 3 ML NEB NEB SCH ×4 (01:23→19:35)
[2016-08-24 03:37] LABS: AUTOMATED BASOPHIL 1.3 % (0-2); AUTOMATED EOSINOPHIL 5.4 % (0-5); AUTOMATED LYMPH 33.6 % (17-44); AUTOMATED MONOCYTE 14.4 % (3-10); AUTOMATED NEUTROPHIL 45.3 % (45-76); MPV 10.3 fL (7.4-10.4)
[2016-08-24 03:41] LABS: BLOOD UREA NITROGEN 22 MG/DL (9-20); CALCIUM 8.6 MG/DL (8.4-10.2); CALCULATED OSMOLALITY 274 MOs/Kg (270-290); CHLORIDE 100 mEq/L (98-107); GLUCOSE 95 MG/DL (70-99); SODIUM LEVEL 141 mEq/L (137-146)
[2016-08-24 05:14] LABS: ALLEN'S TEST PASS
[2016-08-24 05:16] LABS: ABG Draw Site Left Brachial; TCO2 29.9 MMOL/L (23-27)
[2016-08-24] MEDS: Furosemide 100 MG/10 ML VIAL IV SCH (05:40)
[2016-08-24] MEDS: REGULAR INSULIN 100 UNITS/ML - 3 ML VIAL SQ SCH ×4 (05:40→23:58)
[2016-08-24] MEDS: MORPHINE 2 MG/ML INJECTION IV PRN ×3 (05:40→20:22)
[2016-08-24] MEDS: APIXABAN 5 MG TABLET PO SCH ×2 (08:51→20:22)
[2016-08-24] MEDS: FEBUXOSTAT 40 MG TABLET PO SCH (08:51)
[2016-08-24] MEDS: RANITIDINE 150 MG TAB PO SCH ×2 (08:51→20:22)
[2016-08-24] MEDS: CLOPIDOGREL 75 MG TAB PO SCH (08:51)
[2016-08-24] MEDS: LISINOPRIL 5 MG TAB PO SCH (08:52)
[2016-08-24] MEDS: TAMSULOSIN HCL 0.4 MG CAP PO SCH (08:52)
[2016-08-24] MEDS: ATORVASTATIN 20 MG TAB PO SCH (08:52)
[2016-08-24] MEDS: SERTRALINE HCL 25 MG TAB PO SCH (08:52)
[2016-08-24] MEDS: CARVEDILOL 3.125 MG TAB PO SCH ×2 (08:53→20:22)
--- NOTE | 2016-08-24 08:57 | DIRPT ---
CLINICAL DATA: 65-year-old male with respiratory failure. Chest pain. EXAM: CHEST 2 VIEW COMPARISON: 08/23/2016 and prior exams FINDINGS: Cardiomegaly, cardiac surgical changes and left-sided pacemaker again noted. Pulmonary vascular congestion and central right lung interstitial/ possibly airspace opacities again noted. There is no evidence of pleural effusion or pneumothorax. There has been little interval change since the prior study. IMPRESSION: Unchanged appearance of the chest with cardiomegaly, pulmonary vascular congestion and central right lung interstitial possibly airspace opacities. This may represent asymmetric edema or possibly infection. Electronically Signed By: Dez Norris M.D. On: 08/24/2016 08:55
[2016-08-24] MEDS ORDERED: APIXABAN 5 MG TABLET PO SCH (09:00)
[2016-08-24] MEDS: OXYCODONE HCL 5 MG TABLET PO PRN ×2 (09:49→17:13)
--- NOTE | 2016-08-24 10:10 | PCM.CARD ---
- Subjective Reason for visit: Follow up chest pain Doing better but still complained of cough and pain in the chest while coughing and pressing chest wall. Vital Signs: Last Vital Signs Temp 98 F 08/24/16 07:48 Pulse 67 08/24/16 09:45 Resp 18 08/24/16 07:48 BP 108/75 08/24/16 07:48 Pulse Ox 92 08/24/16 07:48 PE: General Appearance: Well developed. Well nourished. In no acute distress. Lungs: Chest was not overinflated. Clear to auscultation. Few rhonchi. Cardiovascular: Jugular Venous Distention: JVD not increased. Heart Rate And Rhythm: Normal. Heart Sounds: Normal. Murmurs: No murmurs were heard. Carotid Arteries: Carotid pulses were normal. No bruit in the carotid artery. Edema: Not present. Lower extremities pulses normal (including femoral popliteal and dorsalis pedis) . Musculoskeletal System: General/bilateral: No cyanosis of the fingers. Neurological: Oriented to time, place, and person. Nails: No clubbing of the fingernails. Lab/DI Results Reviewed: Laboratory Results - last 24 hr 08/23/16 08/23/16 08/23/16 11:55 11:55 14:10 WBC RBC Hgb Hct MCV MCH MCHC RDW Plt Count MPV Neut % (Auto) Lymph % (Auto) [place] % (Auto) Eos % (Auto) Baso % (Auto) Absolute Neuts (auto) Absolute Lymphs (auto) Puncture Site pH pCO2 pO2 HCO3 Total CO2 Base Excess FiO2 % Specimen Drawn By Sodium Potassium Chloride Carbon Dioxide Anion Gap BUN Creatinine Estimated GFR (MDRD) Glucose POC Capillary Glucose 120 H Calculated Osmolality Calcium Magnesium Troponin I Cancelled 0.03 Qcg-N-Dxfhfdkzaxs Pept 1920 H TSH 1.51 08/23/16 08/23/16 08/23/16 15:20 17:16 23:19 WBC RBC Hgb Hct MCV MCH MCHC RDW Plt Count MPV Neut % (Auto) Lymph % (Auto) [place] % (Auto) Eos % (Auto) Baso % (Auto) Absolute Neuts (auto) Absolute Lymphs (auto) Puncture Site pH pCO2 pO2 HCO3 Total CO2 Base Excess FiO2 % Specimen Drawn By Sodium Potassium Chloride Carbon Dioxide Anion Gap BUN Creatinine Estimated GFR (MDRD) Glucose POC Capillary Glucose 93 94 Calculated Osmolality Calcium Magnesium Troponin I 0.03 Bey-N-Hpglebllmfq Pept TSH 08/24/16 08/24/16 08/24/16 03:05 03:05 05:10 WBC 3.9 RBC 4.56 L Hgb 12.1 L D Hct 37.8 L MCV 83 MCH 26.4 L MCHC 31.9 L RDW 17.3 H Plt Count 189 MPV 10.3 Neut % (Auto) 45.3 Lymph % (Auto) 33.6 [place] % (Auto) 14.4 H Eos % (Auto) 5.4 H Baso % (Auto) 1.3 Absolute Neuts (auto) 1.76 Absolute Lymphs (auto) 1.29 Puncture Site Left brachial pH 7.400 pCO2 46.0 H pO2 60.0 L HCO3 28.5 H Total CO2 29.9 H Base Excess 3.0 H FiO2 % 2 Specimen Drawn By [place] Sodium 141 Potassium 3.9 Chloride 100 Carbon Dioxide 30 Anion Gap 15 BUN 22 H Creatinine 1.70 H Estimated GFR (MDRD) 49 L Glucose 95 POC Capillary Glucose Calculated Osmolality 274 Calcium 8.6 Magnesium 1.80 Troponin I Xpb-V-Jjxyeoywxfs Pept TSH 08/24/16 05:26 WBC RBC Hgb Hct MCV MCH MCHC RDW Plt Count MPV Neut % (Auto) Lymph % (Auto) [place] % (Auto) Eos % (Auto) Baso % (Auto) Absolute Neuts (auto) Absolute Lymphs (auto) Puncture Site pH pCO2 pO2 HCO3 Total CO2 Base Excess FiO2 % Specimen Drawn By Sodium Potassium Chloride Carbon Dioxide Anion Gap BUN Creatinine Estimated GFR (MDRD) Glucose POC Capillary Glucose 99 Calculated Osmolality Calcium Magnesium Troponin I Bif-O-Cqqqbpdtxtq Pept [facility] - Assessment/Plan (1) Chest pain Acute R07.9 - CHEST PAIN, UNSPECIFIED Present on Admission: Yes unspecified I R07.9 - Chest pain, unspecified Comment/Plan: Atypical, noncardiac. Biochemical markers normal. Worse with pressing chest wall most likely related to have that he had because of bronchitis/pneumonia. (2) History of ischemic cardiomyopathy Acute Z86.79 - PERSONAL HISTORY OF OTHER DISEASES OF THE CIRCULATORY SYSTEM Comment/Plan: On appropriate medications which I will continue. (3) Paroxysmal a-fib Acute I48.0 - PAROXYSMAL ATRIAL FIBRILLATION Comment/Plan: In sinus rhythm, anticoagulated which I will continue. (4) Heart failure, systolic, with acute decompensation Acute I50.23 - ACUTE ON CHRONIC SYSTOLIC (CONGESTIVE) HEART FAILURE Present on Admission: Yes Comment/Plan: Appears to be compensated right now. Will continue present management. - Plan Gentleman who came to hospital with atypical chest pain. It looks like he gets bronchitis/pneumonia. Treated appropriately with antibiotics. Cardiac issue appears to be stable at the moment. He seems to be compensated. I will sign off. Please call if situation change. Will follow him up as an outpatient.
[2016-08-24] MEDS ORDERED: CHLORHEXIDINE (HIBICLENS) 4 OZ BOTTLE TOP ONE (11:26)
--- NOTE | 2016-08-24 11:30 | GENMEDPROG ---
Subjective Note: Patient bed responsive follows commands. Still visibly short of breath still coughing producing fair amount thick sputum. Still tight in the chest and wheezy. Denies any hemoptysis. Weak tired and fatigued. Notes Reviewed: Yes Events from last night noted and discussed with Clinical Staff Current Medication List: Reviewed Currently: Reports: Cough, Wheezing, DOUGHERTY, SOB, Sputum, Reflux Sx DVT Prophylaxis: Yes - Physical Examination Vital Signs and I&O: Last Vital Signs Temp 98 F 08/24/16 10:59 Pulse 63 08/24/16 10:59 Resp 18 08/24/16 10:59 BP 111/69 08/24/16 10:59 Pulse Ox 96 08/24/16 10:59 Oxygen Pulse Oxygen Saturation 96 O2 Device Nasal Cannula Oxygen Flow Rate 3 Fraction of Inspired Oxygen ( FIO2) Intake & Output 08/21/16 08/22/16 08/23/16 08/24/16 23:59 23:59 23:59 23:59 Intake Total 960 1374 Output Total 700 1600 Balance 260 -226 Patient's weight 101.35 kg General: Alert, Oriented x3, Cooperative, Mild distress HEENT: Normal, PERRLA, EOMI, Anicteric Sclera Neck: Non-tender, Limited range of motion, JVD Lymphatics: Normal Respiratory: Accessory Muscle Use, Diminished, Rales, Rhonchi, Tachypnea, Wheezes Cardiovascular: Regular rate, Normal S1, Normal S2, Murmurs GI: Normal bowel sounds, Soft, Non tender, No hepatospenomegaly, No masses, Obese Extremities/Musculoskeletal: Edema, DJD Skin: Warm,Dry and Intact, No rashes, No breakdown, No significant lesion Neurological: Normal speech, Normal tone, Cranial nerves 3-12 NL Psych/Mental Status: Anxious Lab/DI/Studies Reviewed: Allergies shellfish derived Allergy (Verified 08/23/16 12:43) Anaphylaxis* 08/24/16 03:05 08/24/16 03:05 Abnormal Lab Results 08/23/16 08/23/16 08/24/16 11:55 14:10 03:05 RBC Hgb Hct MCH MCHC RDW [place] % (Auto) Eos % (Auto) pCO2 pO2 HCO3 Total CO2 Base Excess BUN 22 H Creatinine 1.70 H Estimated GFR (MDRD) 49 L POC Capillary Glucose 120 H Tdz-J-Bpknoiicizi Pept 1920 H 08/24/16 08/24/16 03:05 05:10 RBC 4.56 L Hgb 12.1 L D Hct 37.8 L MCH 26.4 L MCHC 31.9 L RDW 17.3 H [place] % (Auto) 14.4 H Eos % (Auto) 5.4 H pCO2 46.0 H pO2 60.0 L HCO3 28.5 H Total CO2 29.9 H Base Excess 3.0 H BUN Creatinine Estimated GFR (MDRD) POC Capillary Glucose Vcu-F-Tougcnvicfr Pept Last Vital Signs Temp 98 F 08/24/16 10:59 Pulse 63 08/24/16 10:59 Resp 18 08/24/16 10:59 BP 111/69 08/24/16 10:59 Pulse Ox 96 08/24/16 10:59 - Assessment (1) Acute respiratory failure with hypoxia Acute J96.01 - ACUTE RESPIRATORY FAILURE WITH HYPOXIA Comment/Plan: Continue O2 nebs and pulmonary toilet. Monitor pulmonary status. Gradually wean off the oxygen as tolerated. Increase activity today. (2) Heart failure, systolic, with acute decompensation Acute I50.23 - ACUTE ON CHRONIC SYSTOLIC (CONGESTIVE) HEART FAILURE Comment/ Plan: Continue IV diuretic at lower dose, monitor weight and fluid balance. Follow by Cardiology. (3) Bacterial pneumonia Acute J15.9 - UNSPECIFIED BACTERIAL PNEUMONIA Comment/Plan: Patient will receive IV antibiotics in the form of Rocephin and Zithromax. Continue aggressive pulmonary toilet (4) Paroxysmal a-fib Chronic I48.0 - PAROXYSMAL ATRIAL FIBRILLATION Comment/Plan: Continue amiodarone. Keep K more than 4 magnesium more than 2.. Anticoagulated. (5) CAD (coronary artery disease), [place] coronary artery Chronic I25.10 - ATHSCL HEART DISEASE OF [place] CORONARY ARTERY W/O ANG PCTRS Qualifiers: [place] vs. transplanted heart: [place] heart Associated angina: with stable angina Qualified Code(s): I25.119 - Atherosclerotic heart disease of [place] coronary artery with unspecified angina pectoris Comment/Plan: Continue home meds. Overall stable from that perspective, follow by Cardiology. (6) Dyslipidemia Chronic E78.5 - HYPERLIPIDEMIA, UNSPECIFIED Comment/Plan: Continue Lipitor (7) Essential hypertension Chronic I10 - ESSENTIAL (PRIMARY) HYPERTENSION Comment/Plan: BP on lower side, hold meds for SBP less than 110 (8) Anemia Acute D64.9 - ANEMIA, UNSPECIFIED Qualifiers: Anemia type: unspecified type Iron deficiency anemia type: I Vitamin B12 deficiency anemia type: V Folate deficiency anemia type: F Bone marrow failure anemia type: B Hemolytic anemia type: H Other causes of anemia: O Qualified Code(s): D64.9 - Anemia, unspecified Comment/Plan: Monitor counts transfuse as needed and indicated (9) CKD (chronic kidney disease) stage 3, GFR 30-59 ml/min Chronic N18.3 - CHRONIC KIDNEY DISEASE, STAGE 3 (MODERATE) Comment/Plan: Monitor renal function maintain hydration avoid any nephrotoxins. Case Care Discussed with: Patient, Consultants, Nursing Staff, Director Prison Education/Counseling Given To: Patient Education/Counseling Given Regarding: Diagnosis, Treatment, Prognosis, Follow Up Total Time: 50 min . Critical Care: No Code: 87774 (12+)
[2016-08-24] MEDS: CEFTRIAXONE 1 GM in D5W 100 ML IV SCH (11:41)
[2016-08-24] MEDS: VITS,MINERALS,IRON TAB PO SCH (11:42)
[2016-08-24] MEDS: METHYLPREDNISOLONE 125 MG/2 ML VIAL IV SCH ×2 (11:51→17:07)
[2016-08-24] MEDS: AZITHROMYCIN 500 MG in D5W 250 ML IV SCH (13:22)
[2016-08-24] MEDS ORDERED: GUAIFENESIN 200 MG/10 ML UDC PO PRN (13:28)
[2016-08-24] MEDS: FUROSEMIDE 40 MG/4 ML VIAL IV SCH (17:06)
[2016-08-24] MEDS: ALPRAZOLAM 0.5 MG TAB PO SCH (20:21)
[2016-08-24] MEDS: AMIODARONE 200 MG TAB PO SCH (20:22)
[2016-08-25] MEDS: METHYLPREDNISOLONE 125 MG/2 ML VIAL IV SCH ×4 (00:13→16:18)
[2016-08-25] MEDS: Albuterol/Ipratropium Neb 3 ML NEB NEB SCH ×4 (01:23→19:30)
[2016-08-25] MEDS: OXYCODONE HCL 5 MG TABLET PO PRN ×3 (03:25→20:24)
[2016-08-25 04:16] LABS: BLOOD UREA NITROGEN 25 MG/DL (9-20); CALCIUM 8.9 MG/DL (8.4-10.2); CALCULATED OSMOLALITY 276 MOs/Kg (270-290); CHLORIDE 99 mEq/L (98-107); GLUCOSE 144 MG/DL (70-99); SODIUM LEVEL 140 mEq/L (137-146)
[2016-08-25 04:18] VITALS: BMI 31.2
[2016-08-25] MEDS: REGULAR INSULIN 100 UNITS/ML - 3 ML VIAL SQ SCH ×4 (05:27→23:08)
[2016-08-25] MEDS: FUROSEMIDE 40 MG/4 ML VIAL IV SCH ×2 (05:28→16:18)
[2016-08-25] MEDS: MORPHINE 2 MG/ML INJECTION IV PRN ×3 (05:28→23:08)
[2016-08-25] MEDS: APIXABAN 5 MG TABLET PO SCH ×2 (07:45→20:17)
[2016-08-25] MEDS: RANITIDINE 150 MG TAB PO SCH ×2 (07:45→20:17)
[2016-08-25] MEDS: VITS,MINERALS,IRON TAB PO SCH (07:45)
[2016-08-25] MEDS: TAMSULOSIN HCL 0.4 MG CAP PO SCH (07:46)
[2016-08-25] MEDS: CLOPIDOGREL 75 MG TAB PO SCH (07:46)
[2016-08-25] MEDS: ATORVASTATIN 20 MG TAB PO SCH (07:46)
[2016-08-25] MEDS: FEBUXOSTAT 40 MG TABLET PO SCH (07:46)
[2016-08-25] MEDS: CARVEDILOL 3.125 MG TAB PO SCH ×2 (07:46→20:17)
[2016-08-25] MEDS: SERTRALINE HCL 25 MG TAB PO SCH (07:46)
[2016-08-25] MEDS: LISINOPRIL 5 MG TAB PO SCH (07:47)
--- NOTE | 2016-08-25 10:34 | PCM.CARD ---
- Subjective Reason for visit: Follow up cardiomyopathy 5 Doing much better but still some cough. No shortness of breath. Pain in the chest while coughing. Pain is reproducible by pressing chest wall. Vital Signs: Last Vital Signs Temp 97.6 F 08/25/16 07:16 Pulse 75 08/25/16 09:29 Resp 19 08/25/16 07:16 BP 119/79 08/25/16 07:16 Pulse Ox 95 08/25/16 07:39 PE: General Appearance: Well developed. Well nourished. In no acute distress. Lungs: Chest was not overinflated. Clear to auscultation. Cardiovascular: Jugular Venous Distention: JVD not increased. Heart Rate And Rhythm: Normal. Heart Sounds: Normal. Murmurs: Systolic murmur like always. Carotid Arteries: Carotid pulses were normal. No bruit in the carotid artery. Edema: Not present. Lower extremities pulses normal (including femoral popliteal and dorsalis pedis) . Musculoskeletal System: General/bilateral: No cyanosis of the fingers. Neurological: Oriented to time, place, and person. Nails: No clubbing of the fingernails. Lab/DI Results Reviewed: Laboratory Results - last 24 hr 08/24/16 08/24/16 08/24/16 11:40 11:50 17:15 Sodium Potassium Chloride Carbon Dioxide Anion Gap BUN Creatinine Estimated GFR (MDRD) Glucose POC Capillary Glucose 116 H 118 H Calculated Osmolality Calcium Magnesium Troponin I 0.02 Gvc-H-Iiprbmhiurh Pept 1400 H 08/24/16 08/25/16 08/25/16 23:37 02:55 05:17 Sodium 140 Potassium 4.6 Chloride 99 Carbon Dioxide 26 Anion Gap 20 H BUN 25 H Creatinine 1.40 H Estimated GFR (MDRD) > 60 Glucose 144 H POC Capillary Glucose 121 H 141 H Calculated Osmolality 276 Calcium 8.9 Magnesium 2.00 Troponin I Nkz-R-Tcohsgbkpdt Pept - Assessment/Plan (1) Chest pain Acute R07.9 - CHEST PAIN, UNSPECIFIED Present on Admission: Yes unspecified I R07.9 - Chest pain, unspecified Comment/Plan: Atypical most likely related to significant cough that he has secondary to bronchial/pulmonary infection. (2) History of ischemic cardiomyopathy Acute Z86.79 - PERSONAL HISTORY OF OTHER DISEASES OF THE CIRCULATORY SYSTEM Comment/Plan: Severe cardiomyopathy on appropriate medications which I will continue. (3) Paroxysmal a-fib Chronic I48.0 - PAROXYSMAL ATRIAL FIBRILLATION Present on Admission: Yes Comment/Plan: Maintain sinus rhythm, anticoagulated will continue. Dose of Eliquis appears to be appropriate. (4) Heart failure, systolic, with acute decompensation Acute I50.23 - ACUTE ON CHRONIC SYSTOLIC (CONGESTIVE) HEART FAILURE Present on Admission: Yes Comment/Plan: Appears to be compensated right now. Will continue present management. - Plan He does have device by [employer] I will ask [employer] insurance service representative to interrogate the device make sure is function properly.
[2016-08-25] MEDS: NS 1,000 ML IV SCH ×2 (11:35→14:58)
[2016-08-25] MEDS: CEFTRIAXONE 1 GM in D5W 100 ML IV SCH (11:59)
[2016-08-25] MEDS: AZITHROMYCIN 500 MG in D5W 250 ML IV SCH (12:49)
--- NOTE | 2016-08-25 16:31 | GENMEDPROG ---
Subjective Note: Patient in bed responsive follows commands. Overall breathing better, still coughing producing fair amount thick sputum still dyspneic with physical exertion. Denies any hemoptysis. Notes Reviewed: Yes Events from last night noted and discussed with Clinical Staff Current Medication List: Reviewed Currently: Reports: Cough, Wheezing, [place], SOB, Sputum, Reflux Sx DVT Prophylaxis: Yes - Physical Examination Vital Signs and I&O: Last Vital Signs Temp 98.2 F 08/25/16 15:44 Pulse 80 08/25/16 15:44 Resp 17 08/25/16 15:44 BP 109/69 08/25/16 15:44 Pulse Ox 91 08/25/16 15:44 Oxygen Pulse Oxygen Saturation 91 O2 Device Nasal Cannula Oxygen Flow Rate 4 Fraction of Inspired Oxygen ( FIO2) Intake & Output 08/22/16 08/23/16 08/24/16 08/25/16 23:59 23:59 23:59 23:59 Intake Total 960 2725 1209 Output Total 700 2900 1725 Balance 097 -653 -534 Patient's weight 101.35 kg 101.718 kg General: Alert, Oriented x3, Cooperative, Mild distress HEENT: Normal, PERRLA, EOMI, Anicteric Sclera Neck: Non-tender, Limited range of motion, JVD Lymphatics: Normal Respiratory: Accessory Muscle Use, Diminished, Rales, Rhonchi, Tachypnea, Wheezes Cardiovascular: Regular rate, Normal S1, Normal S2, Murmurs GI: Normal bowel sounds, Soft, Non tender, No hepatospenomegaly, No masses, Obese Extremities/Musculoskeletal: Edema, DJD Skin: Warm,Dry and Intact, No rashes, No breakdown, No significant lesion Neurological: Normal speech, Normal tone, Cranial nerves 3-12 NL Psych/Mental Status: Anxious Lab/DI/Studies Reviewed: Allergies shellfish derived Allergy (Verified 08/23/16 12:43) Anaphylaxis* 08/24/16 03:05 08/25/16 02:55 - Assessment (1) Acute respiratory failure with hypoxia Acute J96.01 - ACUTE RESPIRATORY FAILURE WITH HYPOXIA Comment/Plan: Slow progress on maximal pulmonary therapy. Continue O2 nebs and pulmonary toilet, increase activity (2) Heart failure, systolic, with acute decompensation Acute I50.23 - ACUTE ON CHRONIC SYSTOLIC (CONGESTIVE) HEART FAILURE Comment/ Plan: Continue IV diuretic at lower dose, monitor weight and fluid balance. Follow by Cardiology. (3) Bacterial pneumonia Acute J15.9 - UNSPECIFIED BACTERIAL PNEUMONIA Comment/Plan: Patient will receive IV antibiotics in the form of Rocephin and Zithromax. Continue aggressive pulmonary toilet (4) Paroxysmal a-fib Chronic I48.0 - PAROXYSMAL ATRIAL FIBRILLATION Comment/Plan: Continue amiodarone. Keep K more than 4 magnesium more than 2.. Anticoagulated. (5) CAD (coronary artery disease), [place] coronary artery Chronic I25.10 - ATHSCL HEART DISEASE OF [place] CORONARY ARTERY W/O ANG PCTRS Qualifiers: [place] vs. transplanted heart: [place] heart Associated angina: with stable angina Qualified Code(s): I25.119 - Atherosclerotic heart disease of [place] coronary artery with unspecified angina pectoris Comment/Plan: Continue home meds. Overall stable from that perspective, follow by Cardiology. (6) Dyslipidemia Chronic E78.5 - HYPERLIPIDEMIA, UNSPECIFIED Comment/Plan: Continue Lipitor (7) Essential hypertension Chronic I10 - ESSENTIAL (PRIMARY) HYPERTENSION Comment/Plan: BP on lower side, hold meds for SBP less than 110 (8) Anemia Acute D64.9 - ANEMIA, UNSPECIFIED Qualifiers: Anemia type: unspecified type Iron deficiency anemia type: I Vitamin B12 deficiency anemia type: V Folate deficiency anemia type: F Bone marrow failure anemia type: B Hemolytic anemia type: H Other causes of anemia: O Qualified Code(s): D64.9 - Anemia, unspecified Comment/Plan: .Monitor counts transfuse as needed and indicated. Overall stable (9) CKD (chronic kidney disease) stage 3, GFR 30-59 ml/min Chronic N18.3 - CHRONIC KIDNEY DISEASE, STAGE 3 (MODERATE) Comment/Plan: Monitor renal function maintain hydration avoid any nephrotoxins. Case Care Discussed with: Patient, Consultants, Nursing Staff, Respiratory Therapy, Line Controller Education/Counseling Given To: Patient Education/Counseling Given Regarding: Diagnosis, Treatment, Prognosis, Follow Up Total Time: 45 min. Critical Care: No Code: 13999 (12+)
[2016-08-25] MEDS: AMIODARONE 200 MG TAB PO SCH (20:17)
[2016-08-25] MEDS: ALPRAZOLAM 0.5 MG TAB PO SCH (20:18)
[2016-08-25] MEDS: METHYLPREDNISOLONE 40 MG/1 ML VIAL IV SCH (23:08)
[2016-08-26] MEDS: Albuterol/Ipratropium Neb 3 ML NEB NEB SCH ×4 (01:43→19:51)
[2016-08-26] MEDS: OXYCODONE HCL 5 MG TABLET PO PRN ×3 (02:10→22:01)
[2016-08-26] MEDS: FUROSEMIDE 40 MG/4 ML VIAL IV SCH ×2 (05:19→16:33)
[2016-08-26] MEDS: MORPHINE 2 MG/ML INJECTION IV PRN ×3 (05:19→14:42)
[2016-08-26] MEDS: REGULAR INSULIN 100 UNITS/ML - 3 ML VIAL SQ SCH ×4 (05:20→21:59)
[2016-08-26] MEDS: METHYLPREDNISOLONE 40 MG/1 ML VIAL IV SCH ×2 (09:51→16:31)
[2016-08-26] MEDS: APIXABAN 5 MG TABLET PO SCH ×2 (09:52→21:50)
[2016-08-26] MEDS: CARVEDILOL 3.125 MG TAB PO SCH ×2 (09:52→21:50)
[2016-08-26] MEDS: TAMSULOSIN HCL 0.4 MG CAP PO SCH (09:52)
[2016-08-26] MEDS: RANITIDINE 150 MG TAB PO SCH ×2 (09:53→21:50)
[2016-08-26] MEDS: FEBUXOSTAT 40 MG TABLET PO SCH (09:53)
[2016-08-26] MEDS: CLOPIDOGREL 75 MG TAB PO SCH (09:53)
[2016-08-26] MEDS: ATORVASTATIN 20 MG TAB PO SCH (09:53)
[2016-08-26] MEDS: LISINOPRIL 5 MG TAB PO SCH (09:54)
[2016-08-26] MEDS: VITS,MINERALS,IRON TAB PO SCH (09:54)
[2016-08-26] MEDS: SERTRALINE HCL 25 MG TAB PO SCH (09:54)
[2016-08-26] MEDS: CEFTRIAXONE 1 GM in D5W 100 ML IV SCH (11:20)
--- NOTE | 2016-08-26 12:44 | GENMEDPROG ---
Chief Complaint: ACUTE RESPIRATORY FAILURE, CHF, PNEUMONIA, ATRIAL FIB, Currently: Reports: Cough, Wheezing, D[place], SOB, Sputum, Reflux Sx DVT Prophylaxis: Yes - Physical Examination Vital Signs and I&O: Last Vital Signs Temp 97.7 F 08/26/16 11:28 Pulse 71 08/26/16 12:00 Resp 18 08/26/16 11:28 BP 102/71 08/26/16 11:28 Pulse Ox 93 08/26/16 11:28 Oxygen Pulse Oxygen Saturation 93 O2 Device Nasal Cannula Oxygen Flow Rate 2 Fraction of Inspired Oxygen ( FIO2) Intake & Output 08/23/16 08/24/16 08/25/16 08/26/16 23:59 23:59 23:59 23:59 Intake Total 960 2725 2289 440 Output Total 700 2900 3625 1500 Balance 069 -004 -1070 -6928 Patient's weight 101.35 kg 101.718 kg 101.333 kg General: Alert, Oriented x3, Cooperative, Mild distress HEENT: Normal, PERRLA, EOMI, Anicteric Sclera Neck: Non-tender, Limited range of motion, JVD Lymphatics: Normal Respiratory: Accessory Muscle Use, Diminished, Rales, Rhonchi, Tachypnea, Wheezes Cardiovascular: Regular rate, Normal S1, Normal S2, Murmurs GI: Normal bowel sounds, Soft, Non tender, No hepatospenomegaly, No masses, Obese Extremities/Musculoskeletal: Edema, DJD Skin: Warm,Dry and Intact, No rashes, No breakdown, No significant lesion Neurological: Normal speech, Normal tone, Cranial nerves 3-12 NL Psych/Mental Status: Anxious - Assessment (1) Acute respiratory failure with hypoxia Acute J96.01 - ACUTE RESPIRATORY FAILURE WITH HYPOXIA Comment/Plan: Slow progress on maximal pulmonary therapy. Continue O2 nebs and pulmonary toilet, increase activity (2) Bacterial pneumonia Acute J15.9 - UNSPECIFIED BACTERIAL PNEUMONIA Comment/Plan: Patient will receive IV antibiotics in the form of Rocephin and Zithromax. Continue aggressive pulmonary toilet (3) Congestive cardiac failure Acute I50.9 - HEART FAILURE, UNSPECIFIED Qualifiers: Congestive heart failure type: systolic Congestive heart failure chronicity : acute on chronic Qualified Code(s): I50.23 - Acute on chronic systolic ( congestive) heart failure (4) History of ischemic cardiomyopathy Acute Z86.79 - PERSONAL HISTORY OF OTHER DISEASES OF THE CIRCULATORY SYSTEM (5) Atrial fibrillation with controlled ventricular response Acute I48.91 - UNSPECIFIED ATRIAL FIBRILLATION Comment/Plan: Maintain potassium >4, magnesium >2 (6) CKD (chronic kidney disease) stage 3, GFR 30-59 ml/min Chronic N18.3 - CHRONIC KIDNEY DISEASE, STAGE 3 (MODERATE) Comment/Plan: Monitor renal function maintain hydration avoid any nephrotoxins. Case Care Discussed with: Patient, Nursing Staff Education/Counseling Given To: Patient Education/Counseling Given Regarding: Diagnosis, Treatment, Prognosis Total Time: 35 min
--- NOTE | 2016-08-26 14:15 | PCM.CARD ---
- Subjective Reason for visit: f/u parox afib Subj: Pt is a pleasant 65 yo AA man with long hx of ASHD, prior MIs, ischemic cardiomyopathy, s/p defib implant at [facility] in [facility], followed in our practice since 2013, EF < 20%, chronic combined systolic/diastolic CHF. Has been on low dose amiodarone for non-sust ventricular tachycardia, but several months ago had hosp in [place] for aflutter, and underwent flutter ablation. He was admitted several days ago with increasing cough and dyspnea, radiographic features of pneumonitis. PT still experience pain across chest/shoulders/ back, exacerbated by coughing. No rad to neck or arms. Less dyspneic. No nausea Vital Signs: Last Vital Signs Temp 97.7 F 08/26/16 11:28 Pulse 75 08/26/16 14:08 Resp 18 08/26/16 11:28 BP 102/71 08/26/16 11:28 Pulse Ox 93 08/26/16 11:28 Intake & Output 08/23/16 08/24/16 08/25/16 08/26/16 23:59 23:59 23:59 23:59 Intake Total 960 2725 2289 860 Output Total 700 2900 3625 1500 Balance 160 -482 -3246 -858 Patient's weight 102.058 kg 101.35 kg 101.718 kg 101.333 kg PE: Physical Exam GEN: age appropriate AA man, in NAD. VS: as above HEENT: no JVD CHEST: few bibasilar fine rales, no significant wheeze or exp prolongation COR: RR, normal s1, s2, no s3 ABD: soft, non-tender EXTREM: no edema SKIN: warm, dry NEURO: alert, no focal motor deficidt. Lab/DI Results Reviewed: tele: NSR, overdriving pacer. Rare PVCs, no dynamic ST-T changes. Echo 03/2015: LVEF 15%, 2+ mild/mod mitral regurgitation moderately elevated pulm art pressure Laboratory Tests 08/24/16 08/25/16 11:50 02:55 Sodium 140 Potassium 4.6 BUN 25 H Creatinine 1.40 H Estimated GFR (MDRD) > 60 Magnesium 2.00 Kkf-J-Cwlfovlodko Pept 1400 H IMPRESSION: improving bronchitis/pneumonitis with chest wall pain. CHF is essentially stable/compensated normal device function by interrogation - Plan PLAN: will follow with you in hosp; outpt Cardiology f/u as planned previously
[2016-08-26] MEDS: AZITHROMYCIN 500 MG in D5W 250 ML IV SCH (14:41)
--- NOTE | 2016-08-26 14:48 | CAPUEKG ---
[place], [place] Test Date: 2016-08-26 Pat Name: FAMILIA BARRERA Department: Room: 429 Gender: Male [employer] Supervisor: JEFF : Requested By: Order Number: Reading MD: Franco Ramos Measurements Intervals [place] Rate: 77 P: 57 MN: 236 QRS: -21 QRSD: 162 T: 261 QT: 440 QTc: 497 Interpretive Statements Sinus rhythm with 1st degree AV block Left atrial enlargement Nonspecific intraventricular block No change since 08/23/2016, except no PVCs currently Abnormal ECG Electronically Signed On 08-26-16 14:48:09 EST by Franco Ramos [id number]> [id number]
[2016-08-26] MEDS: ALPRAZOLAM 0.5 MG TAB PO SCH (21:51)
[2016-08-26] MEDS: AMIODARONE 200 MG TAB PO SCH (21:52)
[2016-08-27] MEDS: METHYLPREDNISOLONE 40 MG/1 ML VIAL IV SCH ×3 (00:29→16:52)
[2016-08-27] MEDS: MORPHINE 2 MG/ML INJECTION IV PRN ×4 (00:31→18:50)
[2016-08-27] MEDS: Albuterol/Ipratropium Neb 3 ML NEB NEB SCH ×4 (01:40→19:32)
[2016-08-27] MEDS: FUROSEMIDE 40 MG/4 ML VIAL IV SCH ×2 (04:26→16:52)
[2016-08-27] MEDS: REGULAR INSULIN 100 UNITS/ML - 3 ML VIAL SQ SCH ×3 (04:33→17:31)
[2016-08-27 05:55] LABS: AUTOMATED BASOPHIL 0.1 % (0-2); AUTOMATED LYMPH 6.8 % (17-44); AUTOMATED MONOCYTE 3.8 % (3-10); AUTOMATED NEUTROPHIL 89.3 % (45-76); MPV 10.4 fL (7.4-10.4)
[2016-08-27 06:17] LABS: BLOOD UREA NITROGEN 37 MG/DL (9-20); CALCIUM 8.8 MG/DL (8.4-10.2); CALCULATED OSMOLALITY 277 MOs/Kg (270-290); CHLORIDE 98 mEq/L (98-107); GLUCOSE 137 MG/DL (70-99); SODIUM LEVEL 138 mEq/L (137-146)
--- NOTE | 2016-08-27 08:22 | DIRPT ---
CLINICAL DATA: 65-year-old male with substernal chest pain for 4 days radiating into both arms. Numbness in the jaw. Productive cough with shortness of breath. Initial encounter. EXAM: CHEST 2 VIEW COMPARISON: 08/24/2016 and earlier. FINDINGS: Stable cardiomegaly and mediastinal contours. Left chest cardiac AICD in sequelae of CABG again noted. Visualized tracheal air column is within normal limits. Bullous emphysema in the right upper lobe with mild architectural distortion is stable. Pulmonary interstitial opacity has regressed since 08/23/2016. No pleural effusion. No consolidation or areas of worsening ventilation. No acute osseous abnormality identified. IMPRESSION: 1. Regressed pulmonary vascular congestion/interstitial edema since 08/23/2016. No new cardiopulmonary abnormality. 2. Right upper lobe bullous emphysema. 3. Chronic moderate to severe cardiomegaly. Electronically Signed By: Will Layne M.D. On: 08/27/2016 08:19
[2016-08-27] MEDS: CLOPIDOGREL 75 MG TAB PO SCH (09:34)
[2016-08-27] MEDS: APIXABAN 5 MG TABLET PO SCH ×2 (09:34→21:31)
[2016-08-27] MEDS: TAMSULOSIN HCL 0.4 MG CAP PO SCH (09:34)
[2016-08-27] MEDS: ATORVASTATIN 20 MG TAB PO SCH (09:34)
[2016-08-27] MEDS: CARVEDILOL 3.125 MG TAB PO SCH ×2 (09:34→21:31)
[2016-08-27] MEDS: RANITIDINE 150 MG TAB PO SCH ×2 (09:35→21:31)
[2016-08-27] MEDS: SERTRALINE HCL 25 MG TAB PO SCH (09:35)
[2016-08-27] MEDS: LISINOPRIL 5 MG TAB PO SCH (09:35)
[2016-08-27] MEDS: FEBUXOSTAT 40 MG TABLET PO SCH (09:35)
[2016-08-27] MEDS: VITS,MINERALS,IRON TAB PO SCH (09:35)
[2016-08-27] MEDS: AZITHROMYCIN 250 MG TAB PO SCH (12:44)
[2016-08-27] MEDS: CEFTRIAXONE 1 GM in D5W 100 ML IV SCH (12:45)
--- NOTE | 2016-08-27 15:21 | GENMEDPROG ---
Currently: Reports: Cough, Wheezing, [place], SOB, Sputum, Reflux Sx DVT Prophylaxis: Yes - Physical Examination Vital Signs and I&O: Last Vital Signs Temp 97.9 F 08/27/16 11:10 Pulse 68 08/27/16 14:00 Resp 18 08/27/16 11:10 BP 111/67 08/27/16 11:10 Pulse Ox 97 08/27/16 11:10 Oxygen Pulse Oxygen Saturation 97 O2 Device Nasal Cannula Oxygen Flow Rate 2 Fraction of Inspired Oxygen ( FIO2) Intake & Output 08/24/16 08/25/16 08/26/16 08/27/16 23:59 23:59 23:59 23:59 Intake Total 2725 2289 2173 720 Output Total 2900 2815 2225 700 Balance -508 -1336 -52 20 Patient's weight 101.35 kg 101.718 kg 101.333 kg 101.196 kg General: Alert, Oriented x3, Cooperative, Mild distress HEENT: Normal, PERRLA, EOMI, Anicteric Sclera Neck: Non-tender, Limited range of motion, JVD Lymphatics: Normal Respiratory: Accessory Muscle Use, Diminished, Rales (minimal), Other (air movement is significantly improved) Cardiovascular: Regular rate, Normal S1, Normal S2, Murmurs GI: Normal bowel sounds, Soft, Non tender, No hepatospenomegaly, No masses, Obese Extremities/Musculoskeletal: Edema, DJD Skin: Warm,Dry and Intact, No rashes, No breakdown, No significant lesion Neurological: Normal speech, Normal tone, Cranial nerves 3-12 NL Psych/Mental Status: Anxious Lab/DI/Studies Reviewed: Laboratory Tests 08/27/16 08/27/16 08/27/16 04:32 05:00 05:00 WBC 8.7 Hgb 12.5 L Hct 38.6 L Plt Count 191 Neut % (Auto) 89.3 H Lymph % (Auto) 6.8 L [place] % (Auto) 3.8 Sodium 138 Potassium 4.2 Chloride 98 Carbon Dioxide 28 Anion Gap 16 BUN 37 H Creatinine 1.30 H Estimated GFR (MDRD) > 60 Glucose 137 H POC Capillary Glucose 117 H Calculated Osmolality 277 Calcium 8.8 Anz-F-Kurpdlmvrtq Pept 3870 H 08/27/16 11:09 WBC Hgb Hct Plt Count Neut % (Auto) Lymph % (Auto) [place] % (Auto) Sodium Potassium Chloride Carbon Dioxide Anion Gap BUN Creatinine Estimated GFR (MDRD) Glucose POC Capillary Glucose 154 H Calculated Osmolality Calcium Ily-M-Povfxfqpsud Pept - Assessment (1) Acute respiratory failure with hypoxia Acute J96.01 - ACUTE RESPIRATORY FAILURE WITH HYPOXIA Comment/Plan: Slow progress on maximal pulmonary therapy. Continue O2 nebs and pulmonary toilet, increase activity (2) Bacterial pneumonia Acute J15.9 - UNSPECIFIED BACTERIAL PNEUMONIA Comment/Plan: Patient will receive IV antibiotics in the form of Rocephin and Zithromax. Continue aggressive pulmonary toilet (3) Congestive cardiac failure Acute I50.9 - HEART FAILURE, UNSPECIFIED Qualifiers: Congestive heart failure type: systolic Congestive heart failure chronicity : acute on chronic Qualified Code(s): I50.23 - Acute on chronic systolic ( congestive) heart failure (4) History of ischemic cardiomyopathy Acute Z86.79 - PERSONAL HISTORY OF OTHER DISEASES OF THE CIRCULATORY SYSTEM (5) Atrial fibrillation with controlled ventricular response Acute I48.91 - UNSPECIFIED ATRIAL FIBRILLATION Comment/Plan: Maintain potassium >4, magnesium >2 (6) CKD (chronic kidney disease) stage 3, GFR 30-59 ml/min Chronic N18.3 - CHRONIC KIDNEY DISEASE, STAGE 3 (MODERATE) Comment/Plan: Monitor renal function maintain hydration avoid any nephrotoxins. - Plan Probable discharge in am- discussed w/ Dr Ramos Case Care Discussed with: Patient, Consultants, Nursing Staff Education/Counseling Given To: Patient Education/Counseling Given Regarding: Diagnosis, Treatment, Prognosis Total Time: 35 min Critical Care: No Couseling Time (>50% in counseling/coordination): Yes Code: 64852 (12+)
--- NOTE | 2016-08-27 16:10 | CAPUECHO ---
INDICATION: F/U ISCHEMIC CM / EVAL MR HEIGHT: 180.3 cm (5 ft 11.0 in) WEIGHT: 101.2 kg (223.0 lbs) BP: 98/63 BSA: 2.633233 m MEASUREMENTS 2D RVIDd: 5.8 cm EF Biplane: 24.33 % LAESV MOD A4C: 134.3 ml LAESV MOD A2C: 142.7 ml LAESV Index (A-L): 70.96 ml/m M-MODE IVSd: 1.1 cm LVIDd: 7.3 cm LVPWd: 1.0 cm LVIDs: 6.3 cm EF(Teich): 27 % Ao Diam: 3.2 cm LA Diam: 5.9 cm DOPPLER MV E Steve: 1.04 m/s MV A Steve: 0.39 m/s MV PHT: 29.38 ms MVA By PHT: 7.49 cm AV Vmax: 1.11 m/s TR Vmax: 3.41 m/s TR maxP mmHg RVSP: 61.60 mmHg FINDINGS ------- Procedure:2D images, m-mode, color and spectral Doppler were obtained and reviewed. Previous 04/11. ECG rhythm:Sinus rhythm. Study quality:This was a technically adequate study. Left Ventricle:The left ventricle is severely dilated. Anterior and Apical akinesis, diffuse hypok inesis in other segments, LVEF remains markeldy depressed, clearly EF < 20%. Restrictive LV fill ing pattern, consistent with elevated LA pressure. Right Ventricle:The right ventricle is mildly enlarged. The right ventricular systolic function is normal. Pacer wire present. Left Atrium:The left atrium is markedly dilated. Right Atrium:The right atrium is moderately enlarged. Electronic pacemaker lead seen in the right atrial cavity. Aortic Valve:The aortic valve is trileaflet with mild aortic valve sclerosis. Mitral Valve:Normal appearing mitral valve. 3+ mod/severe eccentric mitral regurgitation is pres ent, secondary to LV dilatation/dysfunction Tricuspid Valve:The tricuspid valve appears structurally normal. Oowl-eu-ufgxvxxl tricuspid regurg itation present. The right ventricular systolic pressure, as measured by Doppler, is 62 mmhg. Pulmonic Valve:The pulmonic valve is normal. Trace/mild (physiologic) pulmonic regurgitation. Aorta:The aortic root, ascending aorta and aortic arch appear normal. IVC:Normal inferior vena cava with normal inspiratory collapse. Pericardium:There is no pericardial effusion. CONCLUSIONS 1. dilated left ventricle, anterior and apical akinesis, severe diffuse hypokinesis, markedly depres sed LVEF approx 15%, as before. Restrictive filling (advanced diastolic dysfunction) 2. mod/sev ere mitral regurgitation, secondary to #1, with marked left atrial dilatation 3. aortic sclerosis 4. dilated right heart, preserved RV systolic function, pacing cather, mod TR, moderate elevatio n of pulm artery pressure COMMENT: little change from prior study of 03/2015. Mitral regurg may be a little worse. Electronically Signed By: Franco Ramos MD-- Electronically Signed On: 16:07:31
--- NOTE | 2016-08-27 16:37 | PCM.CARD ---
- Subjective Reason for visit: f/u chronic combined systolic/rivera CHF; ischemic CM Subj: feels he's doing some better, little less SOB. No pain, lightheadedness Has questions about his ejection fraction, it's meaning and his clinical course. Vital Signs: Last Vital Signs Temp 98.1 F 08/27/16 16:08 Pulse 71 08/27/16 16:08 Resp 18 08/27/16 16:08 BP 117/76 08/27/16 16:08 Pulse Ox 95 08/27/16 16:08 Intake & Output 08/24/16 08/25/16 08/26/16 08/27/16 23:59 23:59 23:59 23:59 Intake Total 2724 2289 2173 720 Output Total 2900 7875 2225 700 Balance -642 -1336 -52 20 Patient's weight 101.35 kg 101.718 kg 101.333 kg 101.196 kg PE: Physical Exam GEN: overweight, age appropriate, NAD on O2 VS: as above HEENT: neck veins plethoric at 30 deg HOB CHEST: scattered wheezes, minimal if any exp prolongation COR: RR, normal s1, s2, no s3. Gr 1/6 mid systolic murmur ABD: soft, non-tender, no distention EXTREM: no valeria edema SKIN: warm, dry NEURO: alert, no focal deficit or tremor Lab/DI Results Reviewed: Laboratory Tests 08/23/16 08/23/16 08/24/16 09:00 11:55 03:05 WBC 3.9 Hgb 12.1 L D Hct 37.8 L Plt Count 189 Sodium 142 Potassium 3.8 Chloride Carbon Dioxide BUN 19 Creatinine 1.40 H Estimated GFR (MDRD) > 60 Troponin I 0.03 0.03 [id number]-Wgziaacwrvb Pept 1760 H 1920 H TSH 1.51 08/24/16 08/25/16 08/27/16 11:50 02:55 05:00 WBC Hgb Hct Plt Count Sodium 140 138 Potassium 4.6 4.2 Chloride 99 98 Carbon Dioxide 28 BUN 25 H 37 H Creatinine 1.40 H 1.30 H Estimated GFR (MDRD) > 60 > 60 Troponin I Urd-N-Xjbjjymxsus Pept 1400 H 3870 H TSH 08/27/16 05:00 WBC 8.7 Hgb 12.5 L Hct 38.6 L Plt Count Sodium Potassium Chloride Carbon Dioxide BUN Creatinine Estimated GFR (MDRD) Troponin I Ybo-H-Jqsxojkabje Pept TSH tele: NSR, no V Tach CXR: interstitial infiltration less promiinent Echo: LVEF remains about 15%, Mitral regurg is now 3+ moderate, somewhat worse than prior study of 03/2015. Moderate elevation of pulm artery pressure IMPRESSION: bronchitis improving minimal decompensation of chronic sys/rivera CHF - Plan REC: re-introduce spironolactone (no documentation / pt recollection of why discontinued) and bump furosemide dose - pt expresses openness to elective outpt consult at Replaced by [facility] heart failure group (Dr. Suárez) for consideration of his candidacy for advanced therapies if when clinical/status deteriorates. - antiipate discharge soon, ? tomorrow, follow-up with me as outpt Sep 10
[2016-08-27] MEDS: NS 1,000 ML IV SCH (16:52)
[2016-08-27] MEDS: SPIRONOLACTONE 50 MG TAB PO SCH (16:53)
[2016-08-27] MEDS: AMIODARONE 200 MG TAB PO SCH (21:31)
[2016-08-27] MEDS: ALPRAZOLAM 0.5 MG TAB PO SCH (21:31)
[2016-08-28] MEDS: MORPHINE 2 MG/ML INJECTION IV PRN ×2 (00:24→10:50)
[2016-08-28] MEDS: Albuterol/Ipratropium Neb 3 ML NEB NEB SCH ×3 (01:29→15:13)
[2016-08-28] MEDS: FUROSEMIDE 40 MG/4 ML VIAL IV SCH (05:10)
[2016-08-28] MEDS: REGULAR INSULIN 100 UNITS/ML - 3 ML VIAL SQ SCH ×3 (05:36→11:11)
[2016-08-28 07:32] VITALS: TEMP 97.8
[2016-08-28] MEDS: AZITHROMYCIN 250 MG TAB PO SCH (07:43)
[2016-08-28] MEDS: SPIRONOLACTONE 50 MG TAB PO SCH (07:43)
[2016-08-28] MEDS: CLOPIDOGREL 75 MG TAB PO SCH (07:45)
[2016-08-28] MEDS: CARVEDILOL 3.125 MG TAB PO SCH (07:45)
[2016-08-28] MEDS: RANITIDINE 150 MG TAB PO SCH (07:46)
[2016-08-28] MEDS: FEBUXOSTAT 40 MG TABLET PO SCH (07:46)
[2016-08-28] MEDS: TAMSULOSIN HCL 0.4 MG CAP PO SCH (07:46)
[2016-08-28] MEDS: ATORVASTATIN 20 MG TAB PO SCH (07:46)
[2016-08-28] MEDS: LISINOPRIL 5 MG TAB PO SCH (07:47)
[2016-08-28] MEDS: APIXABAN 5 MG TABLET PO SCH (07:47)
[2016-08-28] MEDS: METHYLPREDNISOLONE 40 MG/1 ML VIAL IV SCH ×2 (07:48)
[2016-08-28] MEDS: OXYCODONE HCL 5 MG TABLET PO PRN (08:51)
--- NOTE | 2016-08-28 08:51 | PCM.CARD ---
- Subjective Reason for visit: f/u PNA, acute/chr comb sys/rivera CHF, ischemic cardiomyopathy Subj: Pt's chest feels tighter, more wheezy this AM. Continued pain with coughing. No sputum production No nausea, lightheadedness. Vital Signs: Last Vital Signs Temp 97.8 F 08/28/16 07:32 Pulse 67 08/28/16 07:32 Resp 18 08/28/16 07:32 BP 131/80 08/28/16 07:32 Pulse Ox 94 08/28/16 07:32 Intake & Output 08/25/16 08/26/16 08/27/16 08/28/16 23:59 23:59 23:59 23:59 Intake Total 2289 2173 1554 Output Total 3625 2225 1300 1700 Balance -1336 -52 254 -1700 Patient's weight 101.718 kg 101.333 kg 101.196 kg 102.92 kg PE: Physical Exam GEN: Overweight, NAD on O2 VS: as above Weight up 1 lb since yesterday HEENT: neck veins plethoric CHEST: diffuse wheeze, mild exp prolongation COR: RR, no s3. Gr 1/6 sys murmur at apex ABD: no distention EXTREM: trace edema SKIN: warm, dry NEURO: alert, no focal deficit or tremor Lab/DI Results Reviewed: Laboratory Tests 08/27/16 05:00 Sodium 138 Potassium 4.2 BUN 37 H Creatinine 1.30 H Estimated GFR (MDRD) > 60 Skm-L-Oibmeueltuc Pept 3870 H No new labs today Tele: NSR, rare PVCs, rare couplets, one 3-beat VT. IMPRESSION: CHF component is a little worse - Plan PLAN: added spironolactone yesterday Will increase IV Lasix today, d/c NS in IV. Check sats on RA. Progress activity as able. Hopefully discharge tomorrow. Pt has f/u appt with me scheduled already Sep 10 0915 AM
[2016-08-28] MEDS ORDERED: SODIUM CHLORIDE 0.9% 3 ML FLUSH FLUSH PRN (09:03)
[2016-08-28] MEDS ORDERED: FUROSEMIDE 40 MG/4 ML VIAL IV ONE (10:00)
[2016-08-28] MEDS ORDERED: SODIUM CHLORIDE 0.9% 3 ML FLUSH FLUSH SCH ×2 (10:00→18:00)
[2016-08-28] MEDS: SERTRALINE HCL 25 MG TAB PO SCH (10:01)
--- NOTE | 2016-08-28 11:10 | PCM.DCS92 ---
- Final/Secondary Discharge Diagnosis (1) Acute respiratory failure with hypoxia Acute J96.01 - ACUTE RESPIRATORY FAILURE WITH HYPOXIA Present on Admission: Yes Comment: Slow progress on maximal pulmonary therapy. Continue O2 nebs and pulmonary toilet, increase activity as tolerated (2) Bacterial pneumonia Acute J15.9 - UNSPECIFIED BACTERIAL PNEUMONIA Present on Admission: Yes Comment: Patient has received 5 days of IV antibiotics in the form of Rocephin and Zithromax. Will discharge home on Ceftin for another 5 days. (3) Congestive cardiac failure Acute I50.9 - HEART FAILURE, UNSPECIFIED Present on Admission: Yes systolic acute on chronic I50.23 - Acute on chronic systolic (congestive) heart failure Comment: Patient with severe cardiomyopathy and EF approximately 20%. F/U with Dr. Ramos in 1 -2 weeks (4) History of ischemic cardiomyopathy Acute Z86.79 - PERSONAL HISTORY OF OTHER DISEASES OF THE CIRCULATORY SYSTEM Present on Admission: Yes Comment: Dr. Ramos to set up referral to [facility] cardiology clinic to discuss patient's options regarding MV replacement etc. (5) Atrial fibrillation with controlled ventricular response Chronic I48.91 - UNSPECIFIED ATRIAL FIBRILLATION Present on Admission: Yes Comment: Maintain potassium >4, magnesium >2 (6) CKD (chronic kidney disease) stage 3, GFR 30-59 ml/min Chronic N18.3 - CHRONIC KIDNEY DISEASE, STAGE 3 (MODERATE) Present on Admission: Yes Comment: Monitor renal function maintain hydration avoid any nephrotoxins. BUN= 37, Cr 1.3, eGFR>60 today. Discharge Disposition: Home Discharge Condition: Improved Cognitive Discharge Status: Unimpaired Fuctional Discharge Status: Independent Physician Follow up/Referrals: Adam Holliday MD [Primary Care Provider] - One Week Franco Ramos MD [Staff Physician] - Keep Scheduled Appt Home Medications / New Prescriptions: New Cefuroxime Axetil [Ceftin] 500 mg PO BID #10 tablet Prednisone [Sterapred Ds] 10 mg PO DIR #21 pack Spironolactone [Aldactone] 50 mg PO DAILY #30 tablet Continue Oxycodone HCl [Oxycodone Immediate Release] 10 mg PO Q6H PRN PRN Reason: Pain Apixaban [Eliquis] 5 mg PO BID Apixaban [Eliquis] 5 mg PO BID #60 tablet Oxycodone HCl [Oxycodone Immediate Release] 10 mg PO Q6H PRN #60 tablet PRN Reason: Pain No Action Clopidogrel Bisulfate [Plavix] 75 mg PO DAILY #30 tab Nitroglycerin [Nitrostat] 0.4 mg SL Q5MX3 PRN PRN Reason: Chest Pain Or Discomfort Docusate Sodium [Stool Softener] 100 mg PO DAILY Alprazolam [Xanax] 0.5 mg PO HS Multivitamin W/Iron, Minerals [Complete Senior] 1 each PO DAILY Tamsulosin HCl [Flomax] 0.4 mg PO DAILY Atorvastatin [Lipitor 20 mg Tablet] 20 mg PO DAILY Ranitidine [Zantac] 150 mg PO BID Sertraline HCl [Zoloft] 25 mg PO DAILY Carvedilol [Coreg] 3.125 mg PO BID #60 tablet Lisinopril [Prinivil] 5 mg PO DAILY #30 tablet Amiodarone [Cordarone, Pacerone] 100 mg PO HS Torsemide [Demadex] 20 mg PO BID Albuterol Sulfate [Proair Hfa] 2 puff INH Q4-6H PRN #1 inhaler PRN Reason: Shortness Of Breath PEG-Electrolytes (Miralax) [Miralax] 17 gm PO DAILY PRN PRN Reason: Constipation Ergocalciferol (Vitamin D2) [Vitamin D] 50,000 units PO WEEKLY Febuxostat [Uloric] 40 mg PO DAILY Discharge Home Medication List Clopidogrel Bisulfate [Plavix] 75 mg PO DAILY #30 tab 04/24/14 [Rx Confirmed Last Taken 08/23/16] Nitroglycerin [Nitrostat] 0.4 mg SL Q5MX3 PRN 08/22/14 [History Confirmed Last Taken 08/22/14 17:41] Alprazolam [Xanax] 0.5 mg PO HS 03/31/15 [History Confirmed 08/23/16 Last Taken 08/22/16] Atorvastatin [Lipitor 20 mg Tablet] 20 mg PO DAILY 03/31/15 [History Confirmed 08/23/16 Last Taken 08/23/16] Docusate Sodium [Stool Softener] 100 mg PO DAILY 03/31/15 [History Confirmed Last Taken 08/23/16] Multivitamin W/Iron, Minerals [Complete Senior] 1 each PO DAILY 03/31/15 [ History Confirmed 08/23/16 Last Taken 08/23/16] Ranitidine [Zantac] 150 mg PO BID 03/31/15 [History Confirmed 08/23/16 Last Taken 08/23/16] Sertraline HCl [Zoloft] 25 mg PO DAILY 03/31/15 [History Confirmed 08/23/16 Last Taken 08/22/16] Tamsulosin HCl [Flomax] 0.4 mg PO DAILY 03/31/15 [History Confirmed 08/23/16 Last Taken 08/23/16] Carvedilol [Coreg] 3.125 mg PO BID #60 tablet 04/03/15 [Rx Confirmed 08/23/16 Last Taken 08/23/16] Lisinopril [Prinivil] 5 mg PO DAILY #30 tablet 04/03/15 [Rx Confirmed 08/23/16 Last Taken 08/23/16] Amiodarone [Cordarone, Pacerone] 100 mg PO HS 06/22/15 [History Confirmed Last Taken 08/22/16] Oxycodone HCl [Oxycodone Immediate Release] 10 mg PO Q6H PRN 08/03/15 [History Confirmed 08/23/16 Last Taken 1 Week Ago] Torsemide [Demadex] 20 mg PO BID 08/03/15 [History Confirmed 08/23/16 Last Taken 08/23/16] Albuterol Sulfate [Proair Hfa] 2 puff INH Q4-6H PRN #1 inhaler 08/08/15 [Rx Confirmed 08/23/16 Last Taken 12/05/15] Apixaban [Eliquis] 5 mg PO BID 08/23/16 [History Confirmed 08/23/16 Last Taken 08/23/16] Ergocalciferol (Vitamin D2) [Vitamin D] 50,000 units PO WEEKLY 08/23/16 [ History Confirmed 08/23/16 Last Taken Unknown] Febuxostat [Uloric] 40 mg PO DAILY 08/23/16 [History Confirmed 08/23/16 Last Taken Unknown] PEG-Electrolytes (Miralax) [Miralax] 17 gm PO DAILY PRN 08/23/16 [History Confirmed 08/23/16 Last Taken Unknown] Apixaban [Eliquis] 5 mg PO BID #60 tablet 08/28/16 [Rx Last Taken Unknown] Cefuroxime Axetil [Ceftin] 500 mg PO BID #10 tablet 08/28/16 [Rx Last Taken Unknown] Oxycodone HCl [Oxycodone Immediate Release] 10 mg PO Q6H PRN #60 tablet [Rx Last Taken Unknown] Prednisone [Sterapred Ds] 10 mg PO DIR #21 pack 08/28/16 [Rx Last Taken Unknown] Spironolactone [Aldactone] 50 mg PO DAILY #30 tablet 08/28/16 [Rx Last Taken Unknown] O2 Device: Nasal Cannula Oxygen Flow Rate: 2 Oxygen to be used after Discharge: Continuous Diet at Discharge: Cardiac, Low Salt Activity: As Tolerated, No Heavy Lifting Call Office For: Worsening Symptoms, Fever over 101 F, Pain Uncontrolled By Meds Discontinue use of:: Alcohol, All Illegal Substances, All Types of Tobacco - DC Summary Notes Hospital Course Note:: Discharge summary on patient named ALEXANDER STRAUSS admitted to [facility] on 08/23/16 by Carloz Felix MD. Date of discharge is [08/28/16]. Mr. Alexander Strauss is a 65 yoAA man who presented emergency room early on today for evaluation of few days history of progressive worsening difficulties breathing cough and phlegm production. He states about a week ago he developed chest congestion with cough productive of small amount of foamy whitish sputum. He has subsequently developed chest tightness, wheezes, and cough productive of thick, yellowish-greenish phlegm. His dyspnea has worsened. He has also noticed worsened swelling of both legs and weight gain of about 6 lb. Patient reports recent PND and orthopnea, and had to sleep in a recliner over the past couple nights. He denies any recent discharges from the defibrillator. Given persistence of his symptoms and worsening difficulties breathing patient decided to be evaluated emergency room. Upon arrival in ED he was found to be in the moderate respiratory distress, hypoxic tachypneic and tachycardic. His initial PaO2 was 55. Initial chest x-ray showed cardiomegaly, pulmonary vascular congestion and a right-sided perihilar prominence. Medical consultation was phoned in for inpatient treatment. He was admitted with an exacerbation of his congestive heart failure, pneumonia , and a COPD exacerbation. Blood cultures were obtained and he was started on IV antibiotics with Rocephin and Zithromax, and aggressive pulmonary toilet. Medications were renally adjusted, and he was hydrated gently. His renal function improved during admission, and his pulmonary function is also better. He was unable to obtain a sputum specimen, but his blood cultures remained negative. His turf keeper, Dr. Ramos did see him in consultation, repeated his echocardiogram and confirmed that his EF is still around 20%. He has rather severe mitral regurgitation, and could benefit from possible valve replacement. Thus he will be referred to [facility] cardiology clinic for further evaluation. He has improved symptomatically and will be discharged home on another 5 days of PO antibiotics. He will follow up with Dr. Holliday in [address] Ramos in 1-2 weeks as scheduled. Total Time: 40 min Code: 42664 (>30min.) - Physical Exam Vital Signs: Last Vital Signs Temp 97.8 F 08/28/16 07:32 Pulse 71 08/28/16 10:00 Resp 18 08/28/16 07:32 BP 131/80 08/28/16 07:32 Pulse Ox 94 08/28/16 07:32 Oxygen Pulse Oxygen Saturation 94 O2 Device Nasal Cannula Oxygen Flow Rate 2 Fraction of Inspired Oxygen ( FIO2) Constitutional: No apparent distress, Alert Oriented to: Time, Person, Place - HEENT Head: Normal Eye: Normal Oropharynx: Normal Tympanic Membrane: Dull ENT EAC: Normal TMJ: Normal Nose: No Symptoms Reported - Respiratory/Cardiovascular Respiratory: Normal - CTA, Diminished, Other (air movement is significantly improved) Cardiovascular: Normal - GI Auscultation: Normal Palpation: Normal Tenderness: Non tender Rectal Exam: Deferred - Musculoskeletal Back: Normal Extremities: Normal - Integumentary Skin: Warm, Dry Lymphatics: Normal - Neurologic Memory Impaired: Normal Motor Function: Normal Cranial Nerve: Normal Cerebellar: Ataxia Mood Description: Normal, Anxious Thought: Coherent Perception: Normal
[2016-08-28] MEDS: CEFTRIAXONE 1 GM in D5W 100 ML IV SCH (11:27)
[2016-08-28] MEDS: VITS,MINERALS,IRON TAB PO SCH (11:27)
[2016-08-28 11:34] VITALS: BP 140/91
[2016-08-28 14:50] VITALS: PULSE 63
[2016-08-28] MEDS ORDERED: Furosemide 100 MG/10 ML VIAL IV SCH (16:00)
[2016-08-29] MEDS ORDERED: ERGOCALCIFEROL (VITAMIN D2) 50000 UNITS CAP PO SCH (12:00)
== END 2016-08-28 15:49 | disposition home or self-care (01) | DRG 291 ==
LOC: ED 08:13 → PCU 11:09
PROVIDERS: ADMIT Internal Medicine; ATTEND Family Medicine
PROC: 039B3ZZ Drainage of Right Radial Artery, Percutaneous Approach (ICD-10-PCS; principal; 2016-08-23)
DX: I13.0 Hypertensive heart and chronic kidney disease with heart failure and stage 1 through stage 4 chronic kidney disease, or unspecified chronic kidney disease (principal); J96.01 Acute respiratory failure with hypoxia; I50.21 Acute systolic (congestive) heart failure; E11.22 Type 2 diabetes mellitus with diabetic chronic kidney disease; I48.0 Paroxysmal atrial fibrillation; N18.3 Chronic kidney disease, stage 3 (moderate); I25.119 Atherosclerotic heart disease of native coronary artery with unspecified angina pectoris; E78.5 Hyperlipidemia, unspecified; D64.9 Anemia, unspecified; I25.2 Old myocardial infarction; Z95.1 Presence of aortocoronary bypass graft; Z86.79 Personal history of other diseases of the circulatory system; J45.909 Unspecified asthma, uncomplicated; K21.9 Gastro-esophageal reflux disease without esophagitis; N40.0 Benign prostatic hyperplasia without lower urinary tract symptoms; Z79.899 Other long term (current) drug therapy; Z79.02 Long term (current) use of antithrombotics/antiplatelets; I34.0 Nonrheumatic mitral (valve) insufficiency
CPT/HCPCS: 36415; 36600; 71020; 80048; 80053; 81001; 82272; 82803; 82962; 83735; 83880; 84443; 84484; 85025; 85610; 85730; 87040; 87086; 93005; 93306; 94640; 96372; 99284; G0237; J0456; J0696; J1940; J2270; J2920; J2930; J3490; J7060; J7070; J7620